=== PATIENT | male | born 1955 | race Caucasian/White ===

== ENCOUNTER → 2021-02-24 12:00 | Outpatient (CLI) | payer OTHER, SELFPAY ==
[2021-02-24] MEDS: COVID-19 VACC #1, MRNA(MOD) 100 MCG/0.5 ML VIAL IM (12:10)
== END ==
PROVIDERS: Visit Provider Internal Medicine
DX: Z23 Encounter for immunization (principal)
CPT/HCPCS: 0011A; 91301

== ENCOUNTER → 2021-03-24 14:07 | Outpatient (CLI) | payer OTHER, SELFPAY ==
[2021-03-24] MEDS: COVID-19 VACC #2, MRNA(MOD) 100 MCG/0.5 ML VIAL IM (14:14)
== END ==
PROVIDERS: Visit Provider Internal Medicine
DX: Z23 Encounter for immunization (principal)
CPT/HCPCS: 0012A; 91301

== ENCOUNTER → 2021-10-06 10:24 | Outpatient (CLI) | payer OTHER, SELFPAY ==
[2021-10-06 11:44] LABS: COVID19 -Nasal RAPID Negative
== END ==
PROVIDERS: Visit Provider Nurse Practitioner Family
DX: R05.9 Cough, unspecified (principal); R06.02 Shortness of breath; R09.89 Other specified symptoms and signs involving the circulatory and respiratory systems; R52 Pain, unspecified
CPT/HCPCS: 87635

== ENCOUNTER → 2021-10-06 10:41 | Outpatient (CLI) | payer OTHER, SELFPAY ==
--- NOTE | 2021-10-06 10:47 | DI.RAD.S_ITS ---
PROCEDURE: XR CHEST 2V INDICATIONS: cough TECHNIQUE: 2 views of the chest were acquired. COMPARISON: None. FINDINGS: Surgical changes and devices: None. Lungs and pleura: Mild diffuse interstitial prominence. No focal infiltrates. No pleural effusions or pneumothorax. Mediastinum: Mediastinal contours are normal. Heart size is normal. Bones and chest wall: No suspicious bony abnormalities. Soft tissues appear unremarkable. IMPRESSION: Mild diffuse interstitial prominence. Dictated by: Ed Santos M.D. on 10/06/2021 at 11:18 Approved by: Ed Santos M.D. on 10/06/2021 at 11:20
== END ==
PROVIDERS: PCP Family Medicine; Referring Provider Nurse Practitioner Family; Visit Provider Nurse Practitioner Family
DX: J40 Bronchitis, not specified as acute or chronic (principal); R05.9 Cough, unspecified; R06.02 Shortness of breath; R09.89 Other specified symptoms and signs involving the circulatory and respiratory systems; R52 Pain, unspecified; Z20.822 Contact with and (suspected) exposure to COVID-19
CPT/HCPCS: 71046; 87635

== ENCOUNTER 2021-10-08 09:17 | Inpatient (IN) | payer OTHER, SELFPAY ==
[2021-10-08] VITALS (88 sets, daily range): BP systolic 149–194; BP diastolic 73–100; PULSE 59–100; RESP 16–44; TEMP 36.8; O2SAT 84–98
--- NOTE | 2021-10-08 09:29 | DI.RAD.S_ITS ---
PROCEDURE: XR CHEST 1V INDICATIONS: dyspnea TECHNIQUE: One view of the chest was acquired. COMPARISON: [facility], CR, XR CHEST 2V, 10/06/2021, 10:48. FINDINGS: Surgical changes and devices: None. Lungs and pleura: Lungs are clear. No pleural effusions or pneumothorax. Mediastinum: Mediastinal contours appear normal. Heart size is normal. Bones and chest wall: No suspicious bony lesions. Overlying soft tissues appear unremarkable. IMPRESSION: No acute process. Dictated by: Lizette Montesinos M.D. on 10/08/2021 at 10:13 Approved by: Lizette Montesinos M.D. on 10/08/2021 at 10:13
[2021-10-08] MEDS: methylPREDNISolone 125 MG/2 ML VIAL IV (09:44)
[2021-10-08] MEDS: ALBUTEROL HFA MDI 60 PUFF/8 GM INHALER INH (09:51)
[2021-10-08 09:54] LABS: Hematocrit 50.5 % (41-53); Hemoglobin 17.1 g/dL (13.5-17.5); Mean Corpuscular HGB Conc 33.9 % (30-36); Mean Corpuscular Hemoglobin 29.8 PG (26-34); Mean Corpuscular Volume 88.1 fL (80-100); Platelet Count 224 X10^3/uL (150-400); Red Blood Cell Count 5.73 X10^6/uL (4.5-5.9); Red Cell Distribution Width 13.6 % (11.6-14.8); White Blood Cell Count 8.8 X10^3/uL (4.5-11.0)
[2021-10-08 09:56] LABS: Add Manual Diff / Slide Review YES
[2021-10-08 09:59] LABS: D Dimer 567 ng/mL (<230)
[2021-10-08 10:01] LABS: BUN Creatinine Ratio 21.8 (6-22); Blood Urea Nitrogen 17 mg/dL (9-20); Calcium 9.5 mg/dL (8.4-10.2); Carbon Dioxide 32 mmol/L (22-32); Chloride 98 mmol/L (98-107); Creatine Kinase 963 U/L (55-170); Estimated Glomerular Filt Rate > 60.0 mL/min (>60); Glucose 123 mg/dL (80-110); HEMOLYSIS < 15 (0-50); Lactate (Lactic Acid) 1.2 mmol/L (0.7-2.1); Magnesium 2.4 mg/dL (1.6-2.3); Potassium 3.3 mmol/L (3.4-5.1); Sodium 138 mmol/L (137-145)
[2021-10-08 10:13] LABS: NT-proBNP (BNP-Adult 18+) 581 pg/mL (<125); Troponin I 0.058 ng/mL (0.01-0.034)
[2021-10-08 10:15] LABS: CKMB % Relative Index 5.4 % (1.5-5.0)
--- NOTE | 2021-10-08 10:17 | DI.CT.S_ITS ---
PROCEDURE: CT ANGIO CHEST PE PROTOCOL INDICATIONS: Dyspnea. Rule out PE. TECHNIQUE: After the administration of intravenous contrast, 2 mm thick sections acquired from the pulmonary apices to the posterior costophrenic angles. 3-dimensional maximum intensity projection (MIP) coronal and sagittal reformats were then acquired through the thorax. For radiation dose reduction, the following was used: automated exposure control, adjustment of mA and/or kV according to patient size. COMPARISON: [facility], CR, XR CHEST 1V, 10/08/2021, 9:49. FINDINGS: Image quality: Excellent. Pulmonary arteries: Pulmonary arteries are normal in size, and demonstrate no intraluminal filling defects to suggest central pulmonary embolism. Lungs and pleura: There is a moderate to severe degree of multiple bilateral tree in bud pulmonary opacities, with mid/upper lung predominance. No pleural effusions or pneumothorax. Central and peripheral airways are patent. Mediastinum: Heart size is normal, without pericardial effusion . Thinning of the left ventricular apex with associated anterior protrusion of the left ventricular cavity spanning roughly 28 mm transverse. Moderate calcification of the coronary vasculature. Mildly enlarged right paratracheal/precarinal lymph node measuring 10 mm short axis. Mildly enlarged left hilar lymph node measuring 10 mm short axis. Mildly enlarged right hilar lymph nodes measuring 10 mm short axis and 12 mm short axis. Mildly enlarged 9 mm short axis subcarinal lymph node. Thoracic aorta is normal in caliber and enhancement. Esophagus is normal in caliber. Small hiatal hernia. Moderate thickening of the distal esophagus at the gastroesophageal junction. Bones and chest wall: No suspicious bony lesions. Ribs and thoracic spine appear intact throughout. Thyroid gland is grossly unremarkable. No axillary or supraclavicular adenopathy. Abdomen: Visualized upper abdominal solid organs appear normal in the early arterial phase of enhancement. IMPRESSION: 1. No pulmonary embolus. 2. Multiple bilateral pulmonary nodular densities as described above. Differential considerations include bronchopneumonia/aspiration, mycobacterial infection, bronchiolitis, connective tissue disorders, or granulomatous processes such as sarcoidosis. 3. Mediastinal and hilar adenopathy, likely reactive. Follow-up examination is recommended to exclude underlying malignancy. 4. Coronary artery disease. 5. Thickening of the distal esophagus. Initial further assessment with endoscopy is recommended to evaluate for neoplasm. 6. Apically thinning versus aneurysm involving the left ventricle. Initial further assessment with echocardiography is recommended. Dictated by: Lizette Montesinos M.D. on 10/08/2021 at 11:13 Approved by: Lizette Montesinos M.D. on 10/08/2021 at 11:20
[2021-10-08 10:27] LABS: PCO2 ABG 56.3 mmHg (35-45); pH ABG 7.36 (7.35-7.45)
[2021-10-08 10:28] LABS: HCO3 ABG 32 mmol/L (22-26); Oxygen Saturation ABG 98 % (95-100); PO2 ABG 115 mmHg (80-100); TCO2 ABG 34 mmol/L (21-31)
[2021-10-08 10:29] LABS: Fractionated Inspired Oxygen 32
[2021-10-08] MEDS: ASPIRIN 81 MG CHEW TAB 324 MG PO (10:34)
[2021-10-08 10:42] LABS: Neutrophils Absolute Manual 5104 /uL (3000-5900); Total Cells Counted 100
[2021-10-08 10:44] LABS: RBC Morphology Normal Morphology
[2021-10-08 10:51] LABS: Adenovirus Not Detected (Not Detect); B. parapertussis Not Detected (Not Detecte); Bordetella pertussis Not Detected (Not Detecte); Chlamydophila pneumoniae Not Detected (Not Detect); Coronavirus 229E Not Detected (Not Detect); Coronavirus HKU1 Not Detected (Not Detect); Coronavirus NL 63 Not Detected (Not Detect); Coronavirus OC43 Not Detected (Not Detect); Human Metapneumovirus Not Detected (Not Detect); Human Rhinovirus/Enterovirus Not Detected (Not Detect); Influenza A Not Detected (Not Detect); Influenza B Not Detected (Not Detect); Mycoplasma pneumoniae Not Detected (Not Detect); Parainfluenza Virus 1 Not Detected (Not Detect); Parainfluenza Virus 2 Not Detected (Not Detect); Parainfluenza Virus 3 Not Detected (Not Detect); Parainfluenza Virus 4 Not Detected (Not Detect); Respiratory Syncytial Virus Not Detected (Not Detect); SARS- CoV-2 Not Detected (Not Detecte)
[2021-10-08] MEDS: KETOROLAC 30 MG/ML VIAL 15 MG IV ×3 (11:38→21:50)
[2021-10-08] MEDS: ALBUTEROL/IPRATROPIUM 3 ML AMPUL INH ×3 (11:43→23:18)
--- NOTE | 2021-10-08 14:13 | ED.SOB ---
HPI - SOB/Dyspnea General Chief Complaint: Shortness of Breath/Dyspnea Stated Complaint: COUGH, TROUBLE BREATHING Time Seen by Provider: 10/08/21 09:26 Source: patient and family Mode of arrival: Wheelchair Limitations: no limitations History of Present Illness HPI Narrative: The patient presents with significant difficulty breathing. He is an active smoker, may pack years. He was seen in walk-in clinic 2 days ago COVID-19 testing is negative. Was started on an inhaler and cough suppressants. He is quite short of breath. He has no associated chest pain. Does not have a productive cough. He has no hemoptysis. He has no palpitations, no history of cardiac disease. He has no prior history of COPD. He does not have local PCM, BP has been managed for hypertension and hyperlipidemia. He has no orthopnea peripheral edema with current findings. The patient has significant dyspnea. He is talking in brief responses, gasping for air has he does so. Related Data Home Medications Medication Instructions Recorded Confirmed lisinopril 20 mg tablet 10 mg PO DAILY 10/06/21 10/08/21 rosuvastatin 40 mg tablet 40 mg PO DAILY 10/06/21 10/08/21 aspirin 81 mg tablet,delayed 81 mg PO DAILY 10/08/21 10/08/21 release (Adult Low Dose Aspirin) ezetimibe 10 mg tablet 10 mg PO DAILY 10/08/21 10/08/21 metoprolol tartrate 25 mg tablet 25 mg PO BID 10/08/21 10/08/21 Previous Rx's Medication Instructions Recorded albuterol sulfate 90 mcg/actuation 2 puff INHALATION Q6H PRN #6.7 g 10/06/21 aerosol inhaler benzonatate 100 mg capsule 100 mg PO BID PRN #20 cap 10/06/21 (Meron Wilcox) prednisone 50 mg tablet 50 mg PO DAILY 4 Days #4 tab 10/06/21 Allergies Allergy/AdvReac Type Severity Reaction Status Date / Time No Known Drug Allergies Allergy Unverified 10/06/21 10:12 Review of Systems Constitutional Constitutional: Denies body ache(s), Denies chills, Reports fatigue, Denies fever(s) and Denies headache(s) Eyes Eyes: Denies blurry vision and Denies change in vision ENT Ears, Nose, Mouth, and Throat: Denies vertigo, Denies dizziness, Denies headache(s), Denies mouth pain and Denies sinus pain Cardiovascular Cardiovascular: Denies chest pain, Denies syncope, Denies rapid heart rate and Denies dyspnea Respiratory Respiratory: Denies chest congestion, Denies cough and Denies dyspnea Gastrointestinal Gastrointestinal: Denies abdominal pain, Denies heartburn and Denies nausea Genitourinary Comments: No complaints. Musculoskeletal Musculoskeletal: Denies back pain Comments: No lower extremity edema or pain. Integumentary/Breasts Skin/Breast: Denies pruritus, Denies lesions and Denies rash Neurologic Neurologic: Denies confusion, Denies vertigo, Denies dizziness, Denies syncope and Denies headache(s) Psychiatric Psychiatric: Denies confusion and Denies depression Endocrine Endocrine: Reports fatigue Hematologic/Lymphatic On Anticoagulants: No Patient History Medical History (Updated 10/08/21 @ 20:05 by Nathan Norman MD) Hyperlipidemia Hypertension Social History Smoking Status: Former smoker Smoking Status: Former smoker alcohol intake frequency: 0-2 drinks per day Substance Use Type: does not use Exam Initial Vital Signs Initial Vital Signs: Vital Signs Temperature 98.3 F 10/08/21 09:20 Pulse Rate 79 10/08/21 09:20 Respiratory Rate 44 H 10/08/21 09:20 Blood Pressure 167/92 H 10/08/21 09:20 Pulse Oximetry 84 L 10/08/21 09:20 Const General: cooperative and in distress [facility] Head: normocephalic and atraumatic Mouth: oral mucosae normal Eyes General: appearance normal, both eyes and all related structures Pupils: PERRL EOM: EOM intact bilaterally Neck Neck: full ROM and No JVD Chest Chest: normal inspection of the chest Resp Auscultation: clear to auscultation bilaterally Cardio Palpation: normal PMI Rate: regular rate Rhythm: regular rhythm Heart Sounds: S1 normal, S2 normal and no murmurs GI Inspection: normal to inspection Palpation: soft, No guarding, No mass and No tender Back/Spine/Pelvis Back: No back tenderness and No CVA tenderness Skin General: no rashes or lesions noted Neuro General: patient alert, patient awake, patient oriented x3 and no focal motor deficits Extrem General: normal to inspection, no pedal edema and no calf tenderness Psych Mental Status: mental status grossly normal Course Course Course Narrative: The patient has received multiple neb treatments. Solu-Medrol was given. His initial peak flow was 200. He did not rapidly improved. He is requiring oxygen 4 L nasal cannula. He has an elevated D-dimer, and elevated BNP. He has no clinical findings suggesting severe CHF. His initial presentation was a respiratory illness. He has IV COPD, he is treated for community-acquired pneumonia with Rocephin and Zithromax. CTA chest showed no evidence of PE. He did show significant multiple pulmonary densities as well as hilar adenopathy. There is distal esophageal thickening. This will need additional follow-up. He has improved, yet requires ongoing treatment and oxygen. He is admitted for ongoing care to the hospitalist. Orders Ordered: ED Orders 10/08/21 13:40 Urine Culture Stat Urine Microscopic Stat Discontinued Medications Albuterol (Albuterol Hfa Mdi 60 Puff/8 Gm Inhaler) 4 puff INH NOW ONE Stop: 10/08/21 09:28 Last Admin: 10/08/21 09:51 Dose: 4 puff Documented by: TEMO Albuterol (Albuterol 2.5 Mg/3 Ml Neb (Adult)) 5 mg INH NOW ONE Stop: 10/08/21 14:40 Last Admin: 10/08/21 14:47 Dose: 5 mg Documented by: PATSY Albuterol/Ipratropium (Albuterol/Ipratropium 3 Ml Ampul) 3 ml INH NOW ONE Stop: 10/08/21 11:39 Last Admin: 10/08/21 11:43 Dose: 3 ml Documented by: DARI Albuterol/Ipratropium (Albuterol/Ipratropium 3 Ml Ampul) 3 ml INH NOW ONE Stop: 10/08/21 11:40 Last Admin: 10/08/21 11:58 Dose: 3 ml Documented by: DARI Aspirin (Aspirin 81 Mg Chew Tab) 324 mg PO NOW ONE Stop: 10/08/21 10:18 Last Admin: 10/08/21 10:34 Dose: 324 mg Documented by: TEMO Ceftriaxone Sodium 1,000 mg/ (Sodium Chloride) 100 mls @ 200 mls/hr IV NOW ONE Stop: 10/08/21 14:25 Last Infusion: 10/08/21 15:53 Dose: 0 mls/hr Documented by: Admin: 10/08/21 14:46 Dose: 200 mls/hr Documented by: JASPREET Azithromycin 500 mg/ Dextrose 250 mls @ 250 mls/hr IV NOW ONE Stop: 10/08/21 14:25 Last Infusion: 10/08/21 17:40 Dose: 0 mls/hr Documented by: Admin: 10/08/21 15:39 Dose: 250 mls/hr Documented by: JASPREET Ipratropium [place] (Ipratropium 0.5 Mg/2.5 Ml Neb) 0.5 mg INH NOW ONE Stop: 10/08/21 14:40 Last Admin: 10/08/21 14:47 Dose: 0.5 mg Documented by: PATSY Ketorolac Tromethamine (Ketorolac 30 Mg/Ml Vial) 15 mg IV NOW ONE Stop: 10/08/21 11:35 Last Admin: 10/08/21 11:38 Dose: 15 mg Documented by: TEMO Ketorolac Tromethamine (Ketorolac 30 Mg/Ml Vial) 15 mg IV NOW ONE Stop: 10/08/21 18:51 Last Admin: 10/08/21 18:54 Dose: 15 mg Documented by: JASPREET Methylprednisolone (Methylprednisolone 125 Mg/2 Ml Vial) 125 mg IV NOW ONE Stop: 10/08/21 09:29 Last Admin: 10/08/21 09:44 Dose: 125 mg Documented by: TEMO Vital Signs Vital signs: Vital Signs - 8 hr 10/08/21 11:43 10/08/21 11:50 10/08/21 11:58 Pulse Rate 72 68 68 Respiratory Rate 18 31 H 16 Blood Pressure 174/88 H Pulse Oximetry 91 94 95 10/08/21 12:00 10/08/21 12:10 10/08/21 12:20 Pulse Rate 68 75 71 Respiratory Rate 27 H 39 H 27 H Blood Pressure 172/89 H 173/89 H 176/91 H Pulse Oximetry 94 94 91 10/08/21 12:30 10/08/21 12:40 10/08/21 12:50 Pulse Rate 72 74 69 Respiratory Rate 27 H 33 H 26 H Blood Pressure 177/90 H 160/76 H 160/79 H Pulse Oximetry 91 91 92 10/08/21 13:00 10/08/21 13:10 10/08/21 13:20 Pulse Rate 70 71 81 Respiratory Rate 24 26 H 31 H Blood Pressure 172/77 H 157/73 H 158/81 H Pulse Oximetry 92 93 93 10/08/21 13:30 10/08/21 13:40 10/08/21 13:50 Pulse Rate 77 80 70 Respiratory Rate 26 H Blood Pressure 156/85 H 158/95 H 157/80 H Pulse Oximetry 91 92 90 L 10/08/21 14:00 10/08/21 14:10 10/08/21 14:20 Pulse Rate 65 69 76 Respiratory Rate 24 33 H Blood Pressure 149/86 H 170/80 H 165/87 H Pulse Oximetry 91 92 92 MDM - SOB/Dyspnea Lab Data Result diagrams: 10/08/21 09:35 10/08/21 09:35 Labs: Lab Results 10/08/21 10/08/21 10/08/21 Range/Units 09:35 09:35 09:35 WBC 8.8 (4.5-11.0) X10^3/uL RBC 5.73 (4.5-5.9) X10^6/uL Hgb 17.1 (13.5-17.5) g/dL Hct 50.5 (41-53) % MCV 88.1 (80-100) fL MCH 29.8 (26-34) PG MCHC 33.9 (30-36) % RDW 13.6 (11.6-14.8) % Plt Count 224 (150-400) X10^3/uL Neut % (Auto) Not Reportable Lymph % (Auto) Not Reportable Mcpherson % (Auto) Not Reportable Eos % (Auto) Not Reportable Baso % (Auto) Not Reportable Lymph # (Auto) Not Reportable Mcpherson # (Auto) Not Reportable Baso # (Auto) Not Reportable Total Counted 100 Seg Neutrophils % 33.0 L (38-70) % Band Neutrophils % 25.0 H (3-7) % Lymphocytes % (Manual) 14.0 L (25-45) % Atypical Lymphs % 2.0 H ( - 0) % Monocytes % (Manual) 24.0 H (2-11) % Metamyelocytes % 2.0 H (-0) % Neutrophils # (Manual) 5104 (1113-3249) /uL Plt Morphology Comment RBC Morphology Normal morphology D-Dimer 567 H (<230) ng/mL ABG pH (7.35-7.45) ABG pCO2 (35-45) mmHg ABG pO2 (80-100) mmHg ABG HCO3 (22-26) mmol/L ABG Total CO2 (21-31) mmol/L ABG O2 Saturation (95-100) % ABG Base Excess (-2-2) mmol/L FiO2 Sodium 138 (137-145) mmol/L Potassium 3.3 L (3.4-5.1) mmol/L Chloride 98 (98-107) mmol/L Carbon Dioxide 32 (22-32) mmol/L BUN 17 (9-20) mg/dL Creatinine 0.78 (0.66-1.25) mg/dL Estimated GFR > 60.0 (>60) mL/min BUN/Creatinine Ratio 21.8 (6-22) Glucose 123 H (80-110) mg/dL Lactate (0.7-2.1) mmol/L Calcium 9.5 (8.4-10.2) mg/dL Magnesium 2.4 H (1.6-2.3) mg/dL Total Creatine Kinase 963 H (55-170) U/L CK-MB (CK-2) 52.00 H (<2.37) ng/mL CK-MB (CK-2) Rel Index 5.4 H (1.5-5.0) % Troponin I 0.058 H (0.01-0.034) ng/mL NT-Pro-B Natriuret Pep 581 H (<125) pg/mL Urine RBC (0-5/HPF) Urine WBC (0-5/HPF) Urine Bacteria (None) Ur Culture Indicated? Chlamy pneumoniae PCR (Not Detect) Adenovirus (PCR) (Not Detect) B. pertussis DNA (PCR) (Not Detecte) B.parapertussis DNA PCR (Not Detecte) Coronavirus OC43 (PCR) (Not Detect) Coronavirus HKU1 (PCR) (Not Detect) Coronavirus 229E (PCR) (Not Detect) SARS-CoV-2 (PCR) (Not Detecte) Coronavirus NL63 (PCR) (Not Detect) Human Metapneumovir PCR (Not Detect) Influenza Type A (PCR) (Not Detect) Influenza Type B (PCR) (Not Detect) M. pneumoniae (PCR) (Not Detect) Parainfluenza 1 (PCR) (Not Detect) Parainfluenza 2 (PCR) (Not Detect) Parainfluenza 3 (PCR) (Not Detect) Parainfluenza 4 (PCR) (Not Detect) RSV (PCR) (Not Detect) Entero/Rhino (PCR) (Not Detect) 10/08/21 10/08/21 10/08/21 Range/Units 09:35 09:35 10:18 WBC (4.5-11.0) X10^3/uL RBC (4.5-5.9) X10^6/uL Hgb (13.5-17.5) g/dL Hct (41-53) % MCV (80-100) fL MCH (26-34) PG MCHC (30-36) % RDW (11.6-14.8) % Plt Count (150-400) X10^3/uL Neut % (Auto) Lymph % (Auto) Mcpherson % (Auto) Eos % (Auto) Baso % (Auto) Lymph # (Auto) Mcpherson # (Auto) Baso # (Auto) Total Counted Seg Neutrophils % (38-70) % Band Neutrophils % (3-7) % Lymphocytes % (Manual) (25-45) % Atypical Lymphs % ( - 0) % Monocytes % (Manual) (2-11) % Metamyelocytes % (-0) % Neutrophils # (Manual) (7014-8534) /uL Plt Morphology Comment RBC Morphology D-Dimer (<230) ng/mL ABG pH 7.36 (7.35-7.45) ABG pCO2 56.3 H (35-45) mmHg ABG pO2 115 H (80-100) mmHg ABG HCO3 32 H (22-26) mmol/L ABG Total CO2 34 H (21-31) mmol/L ABG O2 Saturation 98 (95-100) % ABG Base Excess 6.0 H (-2-2) mmol/L FiO2 32 Sodium (137-145) mmol/L Potassium (3.4-5.1) mmol/L Chloride (98-107) mmol/L Carbon Dioxide (22-32) mmol/L BUN (9-20) mg/dL Creatinine (0.66-1.25) mg/dL Estimated GFR (>60) mL/min BUN/Creatinine Ratio (6-22) Glucose (80-110) mg/dL Lactate 1.2 (0.7-2.1) mmol/L Calcium (8.4-10.2) mg/dL Magnesium (1.6-2.3) mg/dL Total Creatine Kinase (55-170) U/L CK-MB (CK-2) (<2.37) ng/mL CK-MB (CK-2) Rel Index (1.5-5.0) % Troponin I (0.01-0.034) ng/mL NT-Pro-B Natriuret Pep (<125) pg/mL Urine RBC (0-5/HPF) Urine WBC (0-5/HPF) Urine Bacteria (None) Ur Culture Indicated? Chlamy pneumoniae PCR Not detected (Not Detect) Adenovirus (PCR) Not detected (Not Detect) B. pertussis DNA (PCR) Not detected (Not Detecte) B.parapertussis DNA PCR Not detected (Not Detecte) Coronavirus OC43 (PCR) Not detected (Not Detect) Coronavirus HKU1 (PCR) Not detected (Not Detect) Coronavirus 229E (PCR) Not detected (Not Detect) SARS-CoV-2 (PCR) Not detected (Not Detecte) Coronavirus NL63 (PCR) Not detected (Not Detect) Human Metapneumovir PCR Not detected (Not Detect) Influenza Type A (PCR) Not detected (Not Detect) Influenza Type B (PCR) Not detected (Not Detect) M. pneumoniae (PCR) Not detected (Not Detect) Parainfluenza 1 (PCR) Not detected (Not Detect) Parainfluenza 2 (PCR) Not detected (Not Detect) Parainfluenza 3 (PCR) Not detected (Not Detect) Parainfluenza 4 (PCR) Not detected (Not Detect) RSV (PCR) Not detected (Not Detect) Entero/Rhino (PCR) Not detected (Not Detect) 10/08/21 Range/Units 13:40 WBC (4.5-11.0) X10^3/uL RBC (4.5-5.9) X10^6/uL Hgb (13.5-17.5) g/dL Hct (41-53) % MCV (80-100) fL MCH (26-34) PG MCHC (30-36) % RDW (11.6-14.8) % Plt Count (150-400) X10^3/uL Neut % (Auto) Lymph % (Auto) Mcpherson % (Auto) Eos % (Auto) Baso % (Auto) Lymph # (Auto) [place]pherson # (Auto) Baso # (Auto) Total Counted Seg Neutrophils % (38-70) % Band Neutrophils % (3-7) % Lymphocytes % (Manual) (25-45) % Atypical Lymphs % ( - 0) % Monocytes % (Manual) (2-11) % Metamyelocytes % (-0) % Neutrophils # (Manual) ([id number]) /uL Plt Morphology Comment RBC Morphology D-Dimer (<230) ng/mL ABG pH (7.35-7.45) ABG pCO2 (35-45) mmHg ABG pO2 (80-100) mmHg ABG HCO3 (22-26) mmol/L ABG Total CO2 (21-31) mmol/L ABG O2 Saturation (95-100) % ABG Base Excess (-2-2) mmol/L FiO2 Sodium (137-145) mmol/L Potassium (3.4-5.1) mmol/L Chloride (98-107) mmol/L Carbon Dioxide (22-32) mmol/L BUN (9-20) mg/dL Creatinine (0.66-1.25) mg/dL Estimated GFR (>60) mL/min BUN/Creatinine Ratio (6-22) Glucose (80-110) mg/dL Lactate (0.7-2.1) mmol/L Calcium (8.4-10.2) mg/dL Magnesium (1.6-2.3) mg/dL Total Creatine Kinase (55-170) U/L CK-MB (CK-2) (<2.37) ng/mL CK-MB (CK-2) Rel Index (1.5-5.0) % Troponin I (0.01-0.034) ng/mL NT-Pro-B Natriuret Pep (<125) pg/mL Urine RBC 0-1/hpf (0-5/HPF) Urine WBC 0-1/hpf (0-5/HPF) Urine Bacteria None seen (None) Ur Culture Indicated? Culture not indicate Chlamy pneumoniae PCR (Not Detect) Adenovirus (PCR) (Not Detect) B. pertussis DNA (PCR) (Not Detecte) B.parapertussis DNA PCR (Not Detecte) Coronavirus OC43 (PCR) (Not Detect) Coronavirus HKU1 (PCR) (Not Detect) Coronavirus 229E (PCR) (Not Detect) SARS-CoV-2 (PCR) (Not Detecte) Coronavirus NL63 (PCR) (Not Detect) Human Metapneumovir PCR (Not Detect) Influenza Type A (PCR) (Not Detect) Influenza Type B (PCR) (Not Detect) M. pneumoniae (PCR) (Not Detect) Parainfluenza 1 (PCR) (Not Detect) Parainfluenza 2 (PCR) (Not Detect) Parainfluenza 3 (PCR) (Not Detect) Parainfluenza 4 (PCR) (Not Detect) RSV (PCR) (Not Detect) Entero/Rhino (PCR) (Not Detect) Urine Dip Bedside Urine Glucose Negative Bedside Urine Bilirubin - Negative Bedside Urine Ketone +/- 5 Urine Specific [place] 1.015 Bedside Urine Occult Blood + Bedside Urine pH 6.0 Bedside Urine Protein + 30 Bedside Urine Urobilinogen - Negative Bedside Urine Nitrite - Negative Bedside Urine Leukocytes - Negative Esterase Imaging Data Chest x-ray: Radiologist's Impression: No acute findings CTA chest: Radiologist's Impression: [place] [address] CT Scan Report Signed Patient: Binh White MR#: [id number] : 1955 Acct:[id number] Age/Sex: 66 / M Date of Service: 10/08/21 Loc: ED Accession Number: [id number] ?? Procedure: CT angio chest PE protocol Ordering Provider: Nathan Norman MD PROCEDURE:? CT ANGIO CHEST PE PROTOCOL ? INDICATIONS:? Dyspnea.? Rule out PE. ? TECHNIQUE:? After the administration of intravenous contrast, 2 mm thick sections acquired from the pulmonary apices to the posterior costophrenic angles.? 3-dimensional maximum intensity projection (MIP) coronal and sagittal reformats were then acquired through the thorax.? For radiation dose reduction, the following was used:? automated exposure control, adjustment of mA and/or kV according to patient size.? ? COMPARISON:? [facility], JATINDER, XR CHEST 1V, 10/08/2021, 9:49. ? FINDINGS:? Image quality:? Excellent.? ? Pulmonary arteries:? Pulmonary arteries are normal in size, and demonstrate no intraluminal filling defects to suggest central pulmonary embolism.? ? Lungs and pleura:? There is a moderate to severe degree of multiple bilateral tree in bud pulmonary opacities, with mid/upper lung predominance.? No pleural effusions or pneumothorax.? Central and peripheral airways are patent.? ? Mediastinum:? Heart size is normal, without pericardial effusion .? Thinning of the left ventricular apex with associated anterior protrusion of the left ventricular cavity spanning roughly 28 mm transverse.? Moderate calcification of the coronary vasculature.? Mildly enlarged right paratracheal/precarinal lymph node measuring 10 mm short axis.? Mildly enlarged left hilar lymph node measuring 10 mm short axis.? Mildly enlarged right hilar lymph nodes measuring 10 mm short axis and 12 mm short axis.? Mildly enlarged 9 mm short axis subcarinal lymph node.? Thoracic aorta is normal in caliber and enhancement.? Esophagus is normal in caliber.? Small hiatal hernia.? Moderate thickening of the distal esophagus at the gastroesophageal junction. ? Bones and chest wall:? No suspicious bony lesions.? Ribs and thoracic spine appear intact throughout.? Thyroid gland is grossly unremarkable.? No axillary or supraclavicular adenopathy.? ? Abdomen:? Visualized upper abdominal solid organs appear normal in the early arterial phase of enhancement.? ? IMPRESSION:? 1. No pulmonary embolus. 2. Multiple bilateral pulmonary nodular densities as described above.? Differential considerations include bronchopneumonia/aspiration, mycobacterial infection, bronchiolitis, connective tissue disorders, or granulomatous processes such as sarcoidosis. 3. Mediastinal and hilar adenopathy, likely reactive.? Follow-up examination is recommended to exclude underlying malignancy. 4. Coronary artery disease. 5. Thickening of the distal esophagus.? Initial further assessment with endoscopy is recommended to evaluate for neoplasm. 6. Apically thinning versus aneurysm involving the left ventricle.? Initial further assessment with echocardiography is recommended.? ? Dictated by: Lizette Montesinos M.D. on 10/08/2021 at 11:13 ? ? Approved by: Lizette Montesinos M.D. on 10/08/2021 at 11:20?? ECG Data Attestation: I personally reviewed and interpreted this ECG as follows: (Normal sinus rhythm rate 82 beats per minute. Inferior Q-waves. No acute ST T wave changes. Occasional PVC.) Critical Care Time Critical Care Time Critical Care Time: Yes Total Critical Care Time: 50 Attestation: Critical care time included initial assessment patient. Time included review of x-ray, radiology and lab data. Several clinical decisions required. The situation was discussed with the patient, and the admitting physician. Discharge Plan Departure Patient Disposition: Admitted As Inpatient Clinical Impression: COPD (chronic obstructive pulmonary disease), Hypertension, Multiple pulmonary nodules, Continuous tobacco abuse, Community acquired pneumonia Admit Date/Time: 10/08/21 14:25 Admit Provider: Michelle Christiansen
[2021-10-08 14:22] LABS: Bacteria Urine None Seen; RBC Urine 0-1/HPF (0-5/HPF); WBC Urine 0-1/HPF (0-5/HPF)
[2021-10-08] MEDS: cefTRIAXone 1,000 MG in SODIUM CHLORIDE 0.9% 100 ML 200 ML IV (14:46)
[2021-10-08] MEDS: ALBUTEROL 2.5 MG/3 ML NEB (ADULT) 5 MG INH (14:47)
[2021-10-08] MEDS: IPRATROPIUM 0.5 MG/2.5 ML NEB INH (14:47)
[2021-10-08] MEDS: AZITHROMYCIN 500 MG in DEXTROSE 5% IN WATER 250 ML IV (15:39)
[2021-10-08 20:22] LABS: NT-proBNP (BNP-Adult 18+) 573 pg/mL (<125)
--- NOTE | 2021-10-08 21:45 | P.HP_ITS ---
History of Present Illness History of Present Illness Date Patient Seen: 10/08/21 Chief complaint: COUGH, TROUBLE BREATHING Narrative: The patient is 66 y/o male with a history of CAD, s/p 7 cardiac stents (4 INGRID), hypertension, hyperlipidemia, esophagaeal cancer, and prostate cancer, who was well until 9 days prior to admission. The patient reports his returned from [place] with a viral infection. She was evaluated/tested and found to be Covid negative. They are both vaccinated against Covid-19. He developed productive cough, shortness of breath, and wheezing. He was seen by his PCP two days ago and given albuterol, prednisone, and benzoate for cough. Despite that he continues to be very symptomatic. Patient has bilateral conjunctival drainage , productive cough, wheezing, shortness of breath, poor appetite, headache and sinus fullness. He was very short of breath in the ED, hypoxic with a room air saturation of 85% and speaking in 3 word sentences. He smoked a pack of cigarettes daily from 1970 to 2008. He has not smoked cigarettes since 2008. He was smoking marijuana daily until recently. He has a remote history of asthma as a child. He also has a remote history of several severe respiratory infections associated with sinus disease many years ago. He has not had pulmonary function testing. He has had no anginal chest pain. He did have some chest pain reprodu cible with palpation which is unlike his prior cardiac chest pain. The patient was evaluated in the ED from to be hypoxic and placed on 3 liters of oxygen. He was given albuterol inhaler and steroids. His Peak flow in the ED was 200. He had a chest xray in the ED which was unremarkable. CT Angio was negative for PE, but revealed multiple bilateral pulmonary nodular densities, mediastinal and hilar adenopathy, thickening of the esophagus, and Coronary artery disease. The patient was started on antibiotics in the ED for presumed community acquired pneumonia and admitted to the hospital for further evaluation. Patient History Medical History (Updated 10/08/21 @ 21:56 by Hiwot Mckeon MD) Esophageal cancer Hyperlipidemia Hypertension Myocardial infarction Prostate cancer Surgical History (Updated 10/08/21 @ 21:56 by Hiwot Mckeon MD) S/P robot-assisted surgical procedure Family & Social History Family History (Updated 10/08/21 @ 21:56 by Hiwot Mckeon MD) Brother Cancer Social History: no tobacco, no alcohol uses marijuana daily Safety & Behavioral: Feels Safe in Current Yes Environment Been Physically Hurt or No Threatened By a Person Tobacco & Substance use: Smoking Status Former smoker alcohol intake frequency 0-2 drinks per day Substance Use Type does not use Meds Home Medications and Allergies Home Medications Medication Instructions Recorded Confirmed Type albuterol sulfate 90 mcg/actuation 2 puff INHALATION Q6H PRN #6.7 g 10/06/21 10/08/21 Rx aerosol inhaler benzonatate 100 mg capsule 100 mg PO BID PRN #20 cap 10/06/21 10/08/21 Rx (Tessalon Perlgalina) lisinopril 20 mg tablet 10 mg PO DAILY 10/06/21 10/08/21 History prednisone 50 mg tablet 50 mg PO DAILY 4 Days #4 tab 10/06/21 10/08/21 Rx rosuvastatin 40 mg tablet 40 mg PO DAILY 10/06/21 10/08/21 History aspirin 81 mg tablet,delayed 81 mg PO DAILY 10/08/21 10/08/21 History release (Adult Low Dose Aspirin) ezetimibe 10 mg tablet 10 mg PO DAILY 10/08/21 10/08/21 History metoprolol tartrate 25 mg tablet 25 mg PO BID 10/08/21 10/08/21 History Allergies Allergy/AdvReac Type Severity Reaction Status Date / Time No Known Drug Allergies Allergy Unverified 10/06/21 10:12 Review of Systems Review of Systems Narrative: 10 point review of system is negative except as above Exam Vital Signs (past 8 hours): - 10/08/21 13:50 10/08/21 14:00 10/08/21 14:10 Pulse Rate 70 65 69 Respiratory Rate 24 Blood Pressure 157/80 H 149/86 H 170/80 H Pulse Oximetry 90 L 91 92 10/08/21 14:20 10/08/21 14:30 10/08/21 14:40 Pulse Rate 76 83 75 Respiratory Rate 33 H 38 H 31 H Blood Pressure 165/87 H Pulse Oximetry 92 90 L 91 10/08/21 14:47 10/08/21 14:50 10/08/21 15:00 Pulse Rate 78 75 79 Respiratory Rate 23 22 39 H Blood Pressure Pulse Oximetry 93 91 90 L 10/08/21 15:10 10/08/21 15:20 10/08/21 15:30 Pulse Rate 100 H 87 90 Respiratory Rate 35 H 20 35 H Blood Pressure Pulse Oximetry 89 L 91 91 10/08/21 15:40 10/08/21 15:50 10/08/21 16:00 Pulse Rate 91 H 91 H 84 Respiratory Rate 32 H 26 H 29 H Blood Pressure Pulse Oximetry 91 90 L 92 10/08/21 16:10 10/08/21 16:20 10/08/21 16:30 Pulse Rate 89 82 81 Respiratory Rate 34 H 31 H 33 H Blood Pressure Pulse Oximetry 90 L 91 91 10/08/21 16:40 10/08/21 16:50 10/08/21 16:58 Pulse Rate 88 85 83 Respiratory Rate 32 H 33 H 23 Blood Pressure 190/93 H Pulse Oximetry 90 L 92 10/08/21 17:00 10/08/21 17:10 10/08/21 17:20 Pulse Rate 81 75 89 Respiratory Rate 22 24 Blood Pressure Pulse Oximetry 92 91 91 10/08/21 17:30 10/08/21 17:40 10/08/21 17:50 Pulse Rate 87 84 90 Respiratory Rate 24 Blood Pressure Pulse Oximetry 93 94 92 10/08/21 18:00 10/08/21 18:10 10/08/21 18:20 Pulse Rate 91 H 81 89 Respiratory Rate 31 H 24 23 Blood Pressure Pulse Oximetry 92 93 92 10/08/21 18:30 10/08/21 18:50 10/08/21 18:57 Pulse Rate 87 86 Respiratory Rate 29 H 40 H Blood Pressure Pulse Oximetry 92 93 91 10/08/21 19:00 10/08/21 19:10 10/08/21 19:40 Pulse Rate 80 75 76 Respiratory Rate 32 H 28 H 24 Blood Pressure Pulse Oximetry 92 91 90 L 10/08/21 19:50 10/08/21 20:10 Pulse Rate 84 89 Respiratory Rate Blood Pressure Pulse Oximetry 93 93 Oxygen Delivery Method Nasal Cannula Oxygen Flow Rate 3 Narrative Exam Narrative: ill appearing male, short of breath, raspy voice, speaking in short sentences Const Other: well nourished, well developed, but ill appearing Eyes Other: bilateral conjunctival ejection, exudate draining from both eyes, sclera anicteric eyelids matted with drainage material Neck Other: supple, without adenopathy thyromegaly, or JVD Resp Other: decreased breath sounds with scattered rhonchi Cardio Other: RRR nl Sl S2 GI Other: Abd: soft/ non tender/ non distended, no HSM Skin Other: no lesions Neuro Other: Cranial nerves 2-12 intact, strength symmetric and equal, sensation grossly intact, gait is not assessed Extrem Other: no edema Psych Other: Normal thought content, thought processes, normal judgement, speech and mood appear normal, no hallucinations Objective Labs Result Diagrams: 10/08/21 09:35 10/08/21 09:35 Labs: Laboratory Results - last 24 hr 10/08/21 10/08/21 10/08/21 09:35 09:35 09:35 WBC 8.8 RBC 5.73 Hgb 17.1 Hct 50.5 MCV 88.1 MCH 29.8 MCHC 33.9 RDW 13.6 Plt Count 224 Neut % (Auto) Not Reportable Lymph % (Auto) Not Reportable [place] % (Auto) Not Reportable Eos % (Auto) Not Reportable Baso % (Auto) Not Reportable Lymph # (Auto) Not Reportable [place] # (Auto) Not Reportable Baso # (Auto) Not Reportable Total Counted 100 Seg Neutrophils % 33.0 L Band Neutrophils % 25.0 H Lymphocytes % (Manual) 14.0 L Atypical Lymphs % 2.0 H Monocytes % (Manual) 24.0 H Metamyelocytes % 2.0 H Neutrophils # (Manual) 5104 Plt Morphology Comment RBC Morphology Normal morphology D-Dimer 567 H ABG pH ABG pCO2 ABG pO2 ABG HCO3 ABG Total CO2 ABG O2 Saturation ABG Base Excess FiO2 Sodium 138 Potassium 3.3 L Chloride 98 Carbon Dioxide 32 BUN 17 Creatinine 0.78 Estimated GFR > 60.0 BUN/Creatinine Ratio 21.8 Glucose 123 H Lactate Calcium 9.5 Magnesium 2.4 H Total Creatine Kinase 963 H CK-MB (CK-2) 52.00 H CK-MB (CK-2) Rel Index 5.4 H Troponin I 0.058 H NT-Pro-B Natriuret Pep 581 H Urine RBC Urine WBC Urine Bacteria Ur Culture Indicated? Chlamy pneumoniae PCR Adenovirus (PCR) B. pertussis DNA (PCR) B.parapertussis DNA PCR Coronavirus OC43 (PCR) Coronavirus HKU1 (PCR) Coronavirus 229E (PCR) SARS-CoV-2 (PCR) Coronavirus NL63 (PCR) Human Metapneumovir PCR Influenza Type A (PCR) Influenza Type B (PCR) M. pneumoniae (PCR) Parainfluenza 1 (PCR) Parainfluenza 2 (PCR) Parainfluenza 3 (PCR) Parainfluenza 4 (PCR) RSV (PCR) Entero/Rhino (PCR) 10/08/21 10/08/21 10/08/21 09:35 09:35 09:35 WBC RBC Hgb Hct MCV MCH MCHC RDW Plt Count Neut % (Auto) Lymph % (Auto) [place] % (Auto) Eos % (Auto) Baso % (Auto) Lymph # (Auto) [place] # (Auto) Baso # (Auto) Total Counted Seg Neutrophils % Band Neutrophils % Lymphocytes % (Manual) Atypical Lymphs % Monocytes % (Manual) Metamyelocytes % Neutrophils # (Manual) Plt Morphology Comment RBC Morphology D-Dimer ABG pH ABG pCO2 ABG pO2 ABG HCO3 ABG Total CO2 ABG O2 Saturation ABG Base Excess FiO2 Sodium Potassium Chloride Carbon Dioxide BUN Creatinine Estimated GFR BUN/Creatinine Ratio Glucose Lactate 1.2 Calcium Magnesium Total Creatine Kinase CK-MB (CK-2) CK-MB (CK-2) Rel Index Troponin I NT-Pro-B Natriuret Pep 573 H Urine RBC Urine WBC Urine Bacteria Ur Culture Indicated? Chlamy pneumoniae PCR Not detected Adenovirus (PCR) Not detected B. pertussis DNA (PCR) Not detected B.parapertussis DNA PCR Not detected Coronavirus OC43 (PCR) Not detected Coronavirus HKU1 (PCR) Not detected Coronavirus 229E (PCR) Not detected SARS-CoV-2 (PCR) Not detected Coronavirus NL63 (PCR) Not detected Human Metapneumovir PCR Not detected Influenza Type A (PCR) Not detected Influenza Type B (PCR) Not detected M. pneumoniae (PCR) Not detected Parainfluenza 1 (PCR) Not detected Parainfluenza 2 (PCR) Not detected Parainfluenza 3 (PCR) Not detected Parainfluenza 4 (PCR) Not detected RSV (PCR) Not detected Entero/Rhino (PCR) Not detected 10/08/21 10/08/21 10:18 13:40 WBC RBC Hgb Hct MCV MCH MCHC RDW Plt Count Neut % (Auto) Lymph % (Auto) [place] % (Auto) Eos % (Auto) Baso % (Auto) Lymph # (Auto) [place] # (Auto) Baso # (Auto) Total Counted Seg Neutrophils % Band Neutrophils % Lymphocytes % (Manual) Atypical Lymphs % Monocytes % (Manual) Metamyelocytes % Neutrophils # (Manual) Plt Morphology Comment RBC Morphology D-Dimer ABG pH 7.36 ABG pCO2 56.3 H ABG pO2 115 H ABG HCO3 32 H ABG Total CO2 34 H ABG O2 Saturation 98 ABG Base Excess 6.0 H FiO2 32 Sodium Potassium Chloride Carbon Dioxide BUN Creatinine Estimated GFR BUN/Creatinine Ratio Glucose Lactate Calcium Magnesium Total Creatine Kinase CK-MB (CK-2) CK-MB (CK-2) Rel Index Troponin I NT-Pro-B Natriuret Pep Urine RBC 0-1/hpf Urine WBC 0-1/hpf Urine Bacteria None seen Ur Culture Indicated? Culture not indicate Chlamy pneumoniae PCR Adenovirus (PCR) B. pertussis DNA (PCR) B.parapertussis DNA PCR Coronavirus OC43 (PCR) Coronavirus HKU1 (PCR) Coronavirus 229E (PCR) SARS-CoV-2 (PCR) Coronavirus NL63 (PCR) Human Metapneumovir PCR Influenza Type A (PCR) Influenza Type B (PCR) M. pneumoniae (PCR) Parainfluenza 1 (PCR) Parainfluenza 2 (PCR) Parainfluenza 3 (PCR) Parainfluenza 4 (PCR) RSV (PCR) Entero/Rhino (PCR) Assessment & Plan Assessment & Plan narrative: 66 y/o male with a history of CAD, remote [place], CAD stents, hypertension, hyperlipidemia, history of esophageal cancer, history of prostate cancer, and probable COPD admitted for * Acute Respiratory Failure * This is likely multifactorial, patient with probable initial viral infection from * CT Scan suggests pneumonia, despite normal WBC and no fever * Also likely has Acute Sinusitis contributing as well * Will check CT of Sinuses * Suspect underlying COPD as well * Continue Ceftriaxone/Azithyromycin for Community Acquired Pneumonia/Acute sinusitis * Continue IV solumedtrol for probable underlying COPD, continue albuterol/atrovent nebs, oxygen as needed for hypoxia * Would recommend outpatient pulmonary function studies once baseline improved * Sars Covid-19 negative, patient is vaccinated and has had his flu shot * Respiratory panel negative Hypertension * Continue lisinopril and metoprolol Hypokalemia * replace potassium CAD * History of SD/ S/p 7 Cardiac Stents * initial troponin 0.058 * Will trend troponin's, check EKG, suspect * Myocardial Injury no active ischemia * continue statin and aspirin * dvt prophylaxis Hyperlipidemia * Continue Statin and ezetimibe History of Esophageal and Prostate Cancer * CT of Chest revealed esophageal thickening * Needs outpatient follow up for possible repeat EGD Patient is a full code and will note that in his record. He will be admitted as an inpatient. I have utilized all available resources to evaluate, confirm, and verify home medications. * COVID-19 COVID-19 status: Negative Result date/Date tested (Pos, Neg/Pending): 10/08/21 Time Spent With Patient Critical Care time: I spent a total of [] minutes of critical care time on this patient's care today; this time is exclusive of procedural time.
--- NOTE | 2021-10-08 22:10 | DI.CT.S_ITS ---
PROCEDURE: CT SINUS SCREEN WO CON INDICATIONS: r/o sinusitis TECHNIQUE: Noncontrast 3.0 mm axial images acquired from the frontal sinuses to the mid-sella, with coronal and sagittal reformats. For radiation dose reduction, the following was used: automated exposure control, adjustment of mA and/or kV according to patient size. COMPARISON: None. FINDINGS: Image quality: Excellent. Maxillary Sinuses: No bony remodeling or destruction. Sinuses are clear. Ethmoid Air Cells: Mild patchy left ethmoid opacification. Bilateral ethmoid mucosal thickening. Sphenoid Sinuses: No bony remodeling or destruction. Sinuses are clear. Frontal Sinuses: No bony remodeling or destruction. Sinuses are clear. Ostiomeatal Complexes: Right ostiomeatal complex is patent. Left ostiomeatal complex suboptimally visualized. No Kiel cells. Miscellaneous: Visualized intra-orbital contents are normal. No vicenta bullosa or paradoxical turbinate curvature. No nasal septal deviation. IMPRESSION: 1. Patchy chronic bilateral ethmoid disease. 2. No acute sinusitis. Dictated by: Ed Santos M.D. on 10/08/2021 at 22:48 Approved by: Ed Santos M.D. on 10/08/2021 at 22:51
[2021-10-08] MEDS: methylPREDNISolone 125 MG/2 ML VIAL 60 MG IV (22:40)
[2021-10-08] MEDS: METOPROLOL IR 25 MG TABLET PO (22:40)
[2021-10-08] MEDS: POTASSIUM CHLORIDE 20 MEQ TAB 40 MEQ PO (23:07)
[2021-10-08] MEDS: ATORVASTATIN 20 MG TABLET 80 MG PO (23:07)
[2021-10-08] MEDS: KCL 20 MEQ IN NS 1,000 ML 84 MEQ IV (23:08)
[2021-10-08 23:09] LABS: Creatine Kinase 742 U/L (55-170)
[2021-10-08 23:21] LABS: Troponin I 0.047 ng/mL (0.01-0.034)
[2021-10-08 23:26] LABS: CKMB % Relative Index 6.4 % (1.5-5.0)
[2021-10-09] VITALS (94 sets, daily range): BP systolic 117–208; BP diastolic 65–99; PULSE 51–90; RESP 17–49; TEMP 37.1–37.2; O2SAT 86–96; BMI 25.7
[2021-10-09 05:12] LABS: Blood Urea Nitrogen 22 mg/dL (9-20); Calcium 8.7 mg/dL (8.4-10.2); Carbon Dioxide 33 mmol/L (22-32); Chloride 101 mmol/L (98-107); Estimated Glomerular Filt Rate > 60.0 mL/min (>60); Glucose 141 mg/dL (80-110); HEMOLYSIS < 15 (0-50); Potassium 4.3 mmol/L (3.4-5.1); Sodium 139 mmol/L (137-145)
[2021-10-09 05:14] LABS: Hematocrit 45.9 % (41-53); Hemoglobin 15.4 g/dL (13.5-17.5); Mean Corpuscular HGB Conc 33.6 % (30-36); Mean Corpuscular Hemoglobin 29.6 PG (26-34); Mean Corpuscular Volume 88.3 fL (80-100); Platelet Count 209 X10^3/uL (150-400); Red Cell Distribution Width 13.8 % (11.6-14.8); White Blood Cell Count 11.9 X10^3/uL (4.5-11.0)
[2021-10-09 05:16] LABS: Add Manual Diff / Slide Review YES
[2021-10-09 05:25] LABS: Troponin I 0.042 ng/mL (0.01-0.034)
[2021-10-09] MEDS: methylPREDNISolone 125 MG/2 ML VIAL 60 MG IV ×3 (06:06→22:03)
[2021-10-09] MEDS: KETOROLAC 30 MG/ML VIAL IV ×3 (06:10→22:03)
[2021-10-09] MEDS: ALBUTEROL/IPRATROPIUM 3 ML AMPUL INH ×4 (06:19→22:15)
[2021-10-09 06:47] LABS: Neutrophils Absolute Manual 7973 /uL (3000-5900); RBC Morphology Normal Morphology; Total Cells Counted 100
[2021-10-09] MEDS: ASPIRIN EC 81 MG TABLET PO (08:39)
[2021-10-09] MEDS: lisinopriL 20 MG TABLET 10 MG PO (08:40)
[2021-10-09] MEDS: DOCUSATE 100 MG CAPSULE PO ×2 (08:42→20:26)
[2021-10-09] MEDS: METOPROLOL IR 25 MG TABLET PO ×2 (08:42→20:26)
[2021-10-09] MEDS: EZETIMIBE 10 MG TABLET PO (08:42)
[2021-10-09] MEDS: ENOXAPARIN 40 MG/0.4 ML SYRINGE SUBCUT (08:43)
--- NOTE | 2021-10-09 12:36 | PC.NURSE ---
Lunch offered to patient and company at 1215.
--- NOTE | 2021-10-09 14:37 | P.PN_ITS ---
Subjective Subjective Date Patient Seen: 10/09/21 Interval history: He is seen today to follow-up his pneumonia and COPD. His CT of the chest reveals concerning abnormalities of the lungs, the distal esophagus and the heart. His IV fluid will be stopped. The white blood count is only 11.9. His CT of the sinus showed no sinusitis. Exam Vital Signs (past 8 hours): - 10/09/21 06:40 10/09/21 06:50 10/09/21 07:00 Pulse Rate 74 77 69 Respiratory Rate Blood Pressure Pulse Oximetry 92 91 89 L 10/09/21 07:10 10/09/21 07:20 10/09/21 07:30 Pulse Rate 67 64 64 Respiratory Rate Blood Pressure Pulse Oximetry 92 90 L 91 10/09/21 07:40 10/09/21 07:50 10/09/21 08:00 Pulse Rate 64 67 59 L Respiratory Rate Blood Pressure Pulse Oximetry 92 91 90 L 10/09/21 08:10 10/09/21 08:20 10/09/21 08:30 Pulse Rate 64 66 62 Respiratory Rate Blood Pressure Pulse Oximetry 90 L 90 L 90 L 10/09/21 08:40 10/09/21 08:42 10/09/21 08:50 Pulse Rate 59 L 57 L 55 L Respiratory Rate Blood Pressure 155/77 H 155/77 H Pulse Oximetry 91 91 92 10/09/21 09:00 10/09/21 09:10 10/09/21 09:20 Pulse Rate 58 L 57 L 55 L Respiratory Rate Blood Pressure 158/71 H Pulse Oximetry 91 91 93 10/09/21 09:30 10/09/21 09:40 10/09/21 09:50 Pulse Rate 52 L 59 L 57 L Respiratory Rate Blood Pressure 150/69 H Pulse Oximetry 92 96 96 10/09/21 10:00 10/09/21 10:10 10/09/21 10:20 Pulse Rate 60 55 L 56 L Respiratory Rate 30 H Blood Pressure 175/84 H Pulse Oximetry 94 93 93 10/09/21 10:30 10/09/21 10:40 10/09/21 10:50 Pulse Rate 68 56 L 58 L Respiratory Rate Blood Pressure 182/84 H Pulse Oximetry 92 93 93 10/09/21 11:00 10/09/21 11:01 10/09/21 11:10 Pulse Rate 55 L 68 70 Respiratory Rate Blood Pressure 159/80 H Pulse Oximetry 94 94 92 10/09/21 11:20 10/09/21 11:30 10/09/21 11:40 Pulse Rate 73 76 67 Respiratory Rate Blood Pressure 208/99 H Pulse Oximetry 93 94 93 10/09/21 11:50 10/09/21 12:00 10/09/21 12:01 Pulse Rate 82 62 64 Respiratory Rate Blood Pressure 190/74 H Pulse Oximetry 95 93 93 10/09/21 12:10 10/09/21 12:20 10/09/21 12:30 Pulse Rate 68 67 63 Respiratory Rate Blood Pressure Pulse Oximetry 92 93 93 10/09/21 12:31 10/09/21 12:40 10/09/21 12:50 Pulse Rate 62 68 70 Respiratory Rate Blood Pressure 179/81 H Pulse Oximetry 93 92 93 10/09/21 13:00 10/09/21 13:10 10/09/21 13:15 Pulse Rate 65 71 72 Respiratory Rate 27 H 20 Blood Pressure 182/81 H Pulse Oximetry 95 93 93 10/09/21 13:20 10/09/21 13:30 10/09/21 13:40 Pulse Rate 71 73 79 Respiratory Rate 27 H Blood Pressure 163/78 H Pulse Oximetry 92 90 L 89 L 10/09/21 13:50 10/09/21 14:00 Pulse Rate 74 70 Respiratory Rate Blood Pressure 165/77 H Pulse Oximetry 93 91 Oxygen Delivery Method High Flow Nasal Cannula Oxygen Flow Rate 4 Narrative Exam Narrative: He is alert and oriented x3. He appears to be in moderate distress with the effort of breathing. Heart is regular rate and rhythm without murmur He has crackles at the left base There is no ankle edema Objective Labs Result Diagrams: 10/09/21 04:35 10/09/21 04:35 Labs: Laboratory Results - last 24 hr 10/08/21 10/08/21 10/08/21 09:35 22:50 22:50 WBC RBC Hgb Hct MCV MCH MCHC RDW Plt Count Neut % (Auto) Lymph % (Auto) [place] % (Auto) Eos % (Auto) Baso % (Auto) Lymph # (Auto) [place] # (Auto) Baso # (Auto) Total Counted Seg Neutrophils % Band Neutrophils % Lymphocytes % (Manual) Monocytes % (Manual) Metamyelocytes % Myelocytes % Neutrophils # (Manual) RBC Morphology Sodium Potassium Chloride Carbon Dioxide BUN Creatinine Estimated GFR BUN/Creatinine Ratio Glucose Calcium Total Creatine Kinase 742 H CK-MB (CK-2) 47.50 H CK-MB (CK-2) Rel Index 6.4 H* Troponin I 0.047 H Cancelled NT-Pro-B Natriuret Pep 573 H 10/09/21 10/09/21 10/09/21 04:35 04:35 04:35 WBC 11.9 H RBC 5.20 Hgb 15.4 Hct 45.9 MCV 88.3 MCH 29.6 MCHC 33.6 RDW 13.8 Plt Count 209 Neut % (Auto) Not Reportable Lymph % (Auto) Not Reportable [place] % (Auto) Not Reportable Eos % (Auto) Not Reportable Baso % (Auto) Not Reportable Lymph # (Auto) Not Reportable [place] # (Auto) Not Reportable Baso # (Auto) Not Reportable Total Counted 100 Seg Neutrophils % 26.0 L Band Neutrophils % 41.0 H Lymphocytes % (Manual) 14.0 L Monocytes % (Manual) 16.0 H Metamyelocytes % 2.0 H Myelocytes % 1.0 H Neutrophils # (Manual) 7973 H RBC Morphology Normal morphology Sodium 139 Potassium 4.3 Chloride 101 Carbon Dioxide 33 H BUN 22 H Creatinine 0.71 Estimated GFR > 60.0 BUN/Creatinine Ratio 31.0 H Glucose 141 H Calcium 8.7 Total Creatine Kinase CK-MB (CK-2) CK-MB (CK-2) Rel Index Troponin I 0.042 H NT-Pro-B Natriuret Pep PFSH Medical History (Updated 10/08/21 @ 21:56 by Hiwot Mckeon MD) Esophageal cancer Hyperlipidemia Hypertension Myocardial infarction Prostate cancer Surgical History (Updated 10/08/21 @ 21:56 by Hiwot Mckeon MD) S/P robot-assisted surgical procedure Family History (Updated 10/08/21 @ 21:56 by Hiwot Mckeon MD) Brother Cancer Social History household members: spouse Smoking Status: Former smoker Assessment & Plan Assessment & Plan narrative: 66 y/o male with a history of CAD, remote [place], CAD stents, hypertension, hyperlipidemia, history of esophageal cancer, history of prostate cancer, and probable COPD admitted for * Acute Respiratory Failure * This is likely multifactorial, patient with probable initial viral infection from * CT Scan suggests pneumonia, despite normal WBC and no fever * CT sinus negative for sinusitis * Suspect underlying COPD as well * Continue Ceftriaxone/Azithyromycin for Community Acquired Pneumonia * Continue IV solumedtrol for probable underlying COPD, continue albuterol /atrovent nebs, oxygen as needed for hypoxia * Would recommend outpatient pulmonary function studies once baseline improved * Sars Covid-19 negative, patient is vaccinated and has had his flu shot * Respiratory panel negative * 2. Multiple bilateral pulmonary nodular densities as described above.? Different ial considerations include bronchopneumonia/aspiration, mycobacterial infection, bronchiolitis, connective tissue disorders, or granulomatous processes such as sarcoidosis. 3. Mediastinal and hilar adenopathy, likely reactive.? Follow-up examination is recommended to exclude underlying malignancy. 4. Coronary artery disease. 5. Thickening of the distal esophagus.? Initial further assessment with endoscopy is recommended to evaluate for neoplasm. 6. Apically thinning versus aneurysm involving the left ventricle.? Initial further assessment with echocardiography is recommended.? * Will need pulmonology outpatient evaluation * Check SIXTO level * * Hypertension * Continue lisinopril and metoprolol * * Hypokalemia * replace potassium * f/u level 4.3 * * CAD * History of [place]/ S/p 7 Cardiac Stents * initial troponin 0.058 * Will trend troponin's, suspect -- * Myocardial Injury no active ischemia * continue statin and aspirin * * dvt prophylaxis * * Hyperlipidemia * Continue Statin and ezetimibe * * History of Esophageal and Prostate Cancer * CT of Chest revealed esophageal thickening * Needs outpatient follow up for possible repeat EGD * * Patient is a full code Time Spent With Patient Critical Care time: I spent a total of [] minutes of critical care time on this patient's care today; this time is exclusive of procedural time.
[2021-10-09] MEDS: cefTRIAXone 1,000 MG in SODIUM CHLORIDE 0.9% 100 ML 200 ML IV (16:47)
[2021-10-09] MEDS: AZITHROMYCIN 250 MG TABLET PO (16:47)
[2021-10-09] MEDS: SENNOSIDES 8.6 MG TABLET 17.2 MG PO (20:26)
[2021-10-09] MEDS: ATORVASTATIN 20 MG TABLET 80 MG PO (20:27)
[2021-10-09] MEDS: BENZONATATE 100 MG CAPSULE PO (22:03)
[2021-10-10 00:30] VITALS: BP 158/73; PULSE 63; RESP 22; TEMP 37; O2SAT 93
[2021-10-10] MEDS: BENZONATATE 100 MG CAPSULE PO (04:00)
[2021-10-10] MEDS: SODIUM CHLORIDE 0.9% 1,000 ML 1000 ML IV (04:06)
[2021-10-10] MEDS: methylPREDNISolone 125 MG/2 ML VIAL 60 MG IV (05:18)
--- NOTE | 2021-10-10 05:50 | PC.NURSE ---
Patient bradycardic, running in the 40's, received order from AUDREY Galdamez for 1 L NS bolus, then changed to 500ml.
[2021-10-10 06:50] VITALS: BP 167/81; PULSE 62; RESP 22; TEMP 37.1; O2SAT 95
[2021-10-10] MEDS: ALBUTEROL/IPRATROPIUM 3 ML AMPUL INH ×2 (07:21→19:12)
[2021-10-10 07:23] VITALS: PULSE 78; RESP 16; O2SAT 95
[2021-10-10] MEDS: ASPIRIN EC 81 MG TABLET PO (09:39)
[2021-10-10] MEDS: DOCUSATE 100 MG CAPSULE PO ×2 (09:40→21:46)
[2021-10-10] MEDS: lisinopriL 20 MG TABLET 10 MG PO (09:40)
[2021-10-10] MEDS: EZETIMIBE 10 MG TABLET PO (09:40)
[2021-10-10] MEDS: METOPROLOL IR 25 MG TABLET PO ×2 (09:40→21:46)
[2021-10-10] MEDS: ENOXAPARIN 40 MG/0.4 ML SYRINGE SUBCUT (09:41)
[2021-10-10] MEDS: MORPHINE 2 MG/ML INJ IV ×2 (09:44→21:46)
--- NOTE | 2021-10-10 11:21 | CM.DANOTE ---
DCP: Case received, EMR reviewed and met with patient. Introduced self and role. Was able to obtain information regarding patient's baseline activity level prior to hospitalization. DCP assessment completed with information currently available. Patient is a 66 year old male who admitted on 10-08, Monday, to the care of the hospitalist team. PCP: Dr. Luciano. Payer: confirmed: [facility] [employer]. Patient came to the hospital via private vehicle secondary to having increased dyspnea. Patient is negative for COVID, but holds diagnosis of acute resp failure secondary to COPD/Pneumonia. He is currently on oxygen. Patient has history of CAD and prostate cancer. Met with patient in his room. He was attempting to get sleep, had not slept very well here at the hospital. He was mobile in his room, oxygen in place. He is alert and oriented. Patient resides [facility] with his spouse, Aurelia. confirmed that his provider is Dr. Luciano, and he is currently not on home oxygen. Patient is independent at his baseline. P: DCP to continue to follow. Patient should be able to go home when he is deemed medically stable. Viri Hernandez RN/Information Technology Auditor Discharge Planning/Care Management CM Discharge Assessment Start: 10/10/21 11:18 Freq: Status: Active Protocol: Document 10/10/21 11:18 (Rec: 10/10/21 11:21 [id number]) Discharge Planning Assessment Assigned [employer] Viri Hernandez RN/Information Technology Auditor Advance Directives? No History Provided By Patient,Medical Record Prior Living Arrangements House Household Members spouse Type of transporation used prior to Drives own vehicle admit Independent with ADL's Yes Is patient alert and oriented? Yes Caregiver for Another No Barriers to Discharge No Discharge Plan Home Transportation Arrangement Spouse Whiteboard Updated in Patient Room with Yes name and ext. # of [employer] Review Status In Process Next Review Type Continued Stay Review
[2021-10-10] MEDS: FAMOTIDINE 20 MG TABLET PO ×2 (12:57→21:45)
--- NOTE | 2021-10-10 14:37 | RT ---
Patient complaining of not getting any sleep per RN Magaly and asking to sleep today. Patient's breath sounds earlier were fairly clear, no noted signs of respiratory distress, RR 14, sat 96% on 4 liters. Patient is actively coughing up sputum which he is saving in a cup by the bed. Color is white to yellow. Patient is using Acapella. Breathing treatments marked as not done per patient request but patient and RN know that patient can call for one and get one if wanted. Will continue to check back at scheduled treatment times.
[2021-10-10 15:00] VITALS: BP 165/70; PULSE 62; RESP 15; TEMP 36.6; O2SAT 95
--- NOTE | 2021-10-10 16:17 | PM.PN.1 ---
Subjective Subjective Date Patient Seen: 10/10/21 Exam Vital Signs (past 8 hours): - 10/10/21 15:00 Temperature 97.9 F Pulse Rate 62 Respiratory Rate 15 Blood Pressure 165/70 H Pulse Oximetry 95 Oxygen Delivery Method Nasal Cannula Oxygen Flow Rate 4 Narrative Exam Narrative: PHYSICAL EXAM GENERAL: APPEAR OLDER THAN STATED AGE. OVERWEIGHT HEAD: ATRAUMATIC NORMOCEPHALIC NECK: SUPPLE. NO THYROMEGALY CHEST: REGULAR RATE. NO RUB. NORMAL S1-S2 PULM: DECREASED BS AT THE BASES. NO WHEEZING. NO RALES. NO CRACKLES EXTREMITIES: TRACE EDEMA. PULSES ARE PRESENT DISTALLY NEURO: CRANIAL NERVES 2-12 GROSSLY INTACT. NONFOCAL EXAM MSK: NO DEFORMITY. NO TRAUMAS SKIN: FAIR SKIN TURGOR FOR AGE. NO GROSS LESION PSYCH : APPROPRIATE MOOD AND AFFECT. ALERT, AWAKE, ORIENTED X3 Objective Labs Result Diagrams: 10/09/21 04:35 10/09/21 04:35 [facility] Medical History (Updated 10/08/21 @ 21:56 by Hiwot Mckeon MD) Esophageal cancer Hyperlipidemia Hypertension Myocardial infarction Prostate cancer Surgical History (Updated 10/08/21 @ 21:56 by Hiwot Mckeon MD) S/P robot-assisted surgical procedure Family History (Updated 10/08/21 @ 21:56 by Hiwot Mckeon MD) Brother Cancer Social History household members: spouse Smoking Status: Former smoker Assessment & Plan Assessment & Plan narrative: PROBLEM LIST ACUTE COPD EXACERBATION ACUTE ON CHRONIC RESPIRATORY FAILURE REACTIVE LEUKOCYTOSIS PLAN CONTINUE CURRENT MANAGEMENT FOR NOW NURSING TO ENCOURAGE PATIENT TO USE INCENTIVE SPIROMETER DEVICE WHILE AWAKE CONTINUE CURRENT ABX INCLUDING AZITHROMYCIN WILL CONSIDER ADDING DOXYCYCLINE IF INDICATED MOBILIZE PATIENT HAS TOLERATED OXYGEN SUPPLEMENT TO MAINTAIN PROPER OXYGEN SATURATION ABOVE 90% AT ALL TIMES REPEAT CHEST X-RAY AND ABGS HERE TO FOLLOW IF PATIENT CONTINUE TO TREND PREVENT, WILL LIKELY DISCHARGE THE NEXT 24-48 HOURS ADDITIONAL MANAGEMENT PER CLINICAL COURSE Time Spent With Patient Critical Care time: I spent a total of [] minutes of critical care time on this patient's care today; this time is exclusive of procedural time.
[2021-10-10] MEDS: cefTRIAXone 1,000 MG in SODIUM CHLORIDE 0.9% 100 ML 200 ML IV (16:33)
[2021-10-10] MEDS: AZITHROMYCIN 250 MG TABLET PO (16:34)
[2021-10-10] MEDS: SUCRALFATE 1 GM TABLET PO ×2 (16:35→21:46)
[2021-10-10] MEDS: methylPREDNISolone 125 MG/2 ML VIAL 40 MG IV (16:38)
[2021-10-10] MEDS: SODIUM CHLORIDE 0.9% FLUSH 10 ML IV ×2 (16:39→22:34)
[2021-10-10 19:17] VITALS: PULSE 74; RESP 16; O2SAT 96
[2021-10-10 19:54] VITALS: BP 167/60; PULSE 63; RESP 16; TEMP 37; O2SAT 96
[2021-10-10] MEDS: TRAZODONE 100 MG TABLET PO (21:45)
[2021-10-10] MEDS: SENNOSIDES 8.6 MG TABLET 17.2 MG PO (21:45)
[2021-10-10] MEDS: MELATONIN 3 MG TABLET 6 MG PO (21:45)
[2021-10-10] MEDS: ATORVASTATIN 20 MG TABLET 80 MG PO (21:45)
[2021-10-11] VITALS (12 sets, daily range): BP systolic 131–158; BP diastolic 62–96; PULSE 50–68; RESP 15–20; TEMP 36.6–37.4; O2SAT 88–96
[2021-10-11] MEDS: methylPREDNISolone 125 MG/2 ML VIAL 40 MG IV ×2 (05:17→17:14)
[2021-10-11] MEDS: FAMOTIDINE 20 MG TABLET PO ×2 (06:25→20:36)
[2021-10-11 06:57] LABS: Hematocrit 46.5 % (41-53); Hemoglobin 15.4 g/dL (13.5-17.5); Mean Corpuscular HGB Conc 33.1 % (30-36); Mean Corpuscular Hemoglobin 29.4 PG (26-34); Mean Corpuscular Volume 88.8 fL (80-100); Platelet Count 230 X10^3/uL (150-400); Red Blood Cell Count 5.23 X10^6/uL (4.5-5.9); Red Cell Distribution Width 14.2 % (11.6-14.8); White Blood Cell Count 21.6 X10^3/uL (4.5-11.0)
[2021-10-11 06:59] LABS: Add Manual Diff / Slide Review YES
[2021-10-11 07:07] LABS: Alanine Aminotransferase 214 IU/L (<50); Albumin 3.3 g/dL (3.5-5.0); Albumin Globulin Ratio 1.2 (1.0-2.8); Alkaline Phosphatase 75 U/L (38-126); Aspartate Aminotransferase 66 IU/L (17-59); BUN Creatinine Ratio 27.8 (6-22); Bilirubin Total 0.4 mg/dL (0.2-1.3); Blood Urea Nitrogen 20 mg/dL (9-20); Calcium 8.7 mg/dL (8.4-10.2); Carbon Dioxide 36 mmol/L (22-32); Chloride 102 mmol/L (98-107); Estimated Glomerular Filt Rate > 60.0 mL/min (>60); Globulin 2.8 g/dL (1.7-4.1); Glucose 109 mg/dL (80-110); HEMOLYSIS < 15 (0-50); Potassium 4.4 mmol/L (3.4-5.1); Sodium 140 mmol/L (137-145); Total Protein 6.1 g/dL (6.3-8.2)
[2021-10-11 07:44] LABS: Neutrophils Absolute Manual 16632 /uL (3000-5900); Total Cells Counted 100
[2021-10-11 07:45] LABS: RBC Morphology Normal Morphology
[2021-10-11] MEDS: ALBUTEROL/IPRATROPIUM 3 ML AMPUL INH ×5 (08:03→23:42)
[2021-10-11] MEDS: METOPROLOL IR 25 MG TABLET PO ×2 (08:51→20:36)
[2021-10-11] MEDS: lisinopriL 20 MG TABLET 10 MG PO (08:51)
[2021-10-11] MEDS: SUCRALFATE 1 GM TABLET PO ×4 (08:51→20:36)
[2021-10-11] MEDS: ENOXAPARIN 40 MG/0.4 ML SYRINGE SUBCUT (08:51)
[2021-10-11] MEDS: DOCUSATE 100 MG CAPSULE PO (08:51)
[2021-10-11] MEDS: SODIUM CHLORIDE 0.9% FLUSH 10 ML IV ×2 (08:52→20:54)
[2021-10-11] MEDS: ASPIRIN EC 81 MG TABLET 162 MG PO (08:57)
[2021-10-11] MEDS: EZETIMIBE 10 MG TABLET PO (08:58)
[2021-10-11] MEDS: DOXYCYCLINE HYCLATE 100 MG TABLET PO ×2 (09:16→20:36)
[2021-10-11] MEDS: LACTOBACILLUS ACIDOPHILUS TABLET 1 EACH PO ×2 (13:04→17:13)
[2021-10-11] MEDS: cefTRIAXone 1,000 MG in SODIUM CHLORIDE 0.9% 100 ML 200 ML IV (17:13)
--- NOTE | 2021-10-11 17:58 | P.PN_ITS ---
Subjective Subjective Date Patient Seen: 10/11/21 Interval history: PATIENT SEEN IN HIS ROOM WHILE LAYING DOWN IN THE BED TODAY DENIES ANY INCREASING SHORTNESS OF BREATH. NO CHEST PAIN. NO CHEST PALPITATIONS. HAD A GOOD OF SLEEP. DENIES ANY CONFUSION. NO SIGNIFICANT ISSUES WITH THE NURSING OVERNIGHT Exam Vital Signs (past 8 hours): - 10/11/21 12:16 10/11/21 13:00 10/11/21 16:03 Temperature 97.9 F Pulse Rate 50 L 67 58 L Respiratory Rate 16 19 16 Blood Pressure 131/63 Pulse Oximetry 93 92 94 Oxygen Delivery Method Nasal Cannula Oxygen Flow Rate 1 Narrative Exam Narrative: ? PHYSICAL EXAM ?GENERAL:? APPEAR OLDER THAN STATED AGE.? OVERWEIGHT ?HEAD:? ATRAUMATIC NORMOCEPHALIC ?NECK:? SUPPLE.? NO THYROMEGALY ?CHEST:? REGULAR RATE.? NO RUB.? NORMAL S1-S2 ?PULM:? DECREASED BS AT THE BASES.? NO WHEEZING.? NO RALES.? NO CRACKLES ?EXTREMITIES:? TRACE EDEMA.? PULSES ARE PRESENT DISTALLY ?NEURO:? CRANIAL NERVES 2-12 GROSSLY INTACT.? NONFOCAL EXAM MSK:? NO DEFORMITY.? NO TRAUMAS ?SKIN: ? FAIR SKIN TURGOR FOR AGE.? NO GROSS LESION ?PSYCH :? APPROPRIATE MOOD AND AFFECT.? ALERT, AWAKE, ORIENTED X3 Objective Labs Result Diagrams: 10/11/21 06:35 10/11/21 06:35 Labs: Laboratory Results - last 24 hr 10/11/21 10/11/21 06:35 06:35 WBC 21.6 H RBC 5.23 Hgb 15.4 Hct 46.5 MCV 88.8 MCH 29.4 MCHC 33.1 RDW 14.2 Plt Count 230 Neut % (Auto) Not Reportable Lymph % (Auto) Not Reportable Travis % (Auto) Not Reportable Eos % (Auto) Not Reportable Baso % (Auto) Not Reportable Lymph # (Auto) Not Reportable Travis # (Auto) Not Reportable Baso # (Auto) Not Reportable Total Counted 100 Seg Neutrophils % 67.0 Band Neutrophils % 10.0 H Lymphocytes % (Manual) 11.0 L Atypical Lymphs % 1.0 H Monocytes % (Manual) 7.0 Metamyelocytes % 2.0 H Myelocytes % 2.0 H Neutrophils # (Manual) 69429 H RBC Morphology Normal morphology Sodium 140 Potassium 4.4 Chloride 102 Carbon Dioxide 36 H BUN 20 Creatinine 0.72 Estimated GFR > 60.0 BUN/Creatinine Ratio 27.8 H Glucose 109 Calcium 8.7 Total Bilirubin 0.4 AST 66 H ALT 214 H Alkaline Phosphatase 75 Total Protein 6.1 L Albumin 3.3 L Globulin 2.8 Albumin/Globulin Ratio 1.2 PFSH Medical History (Updated 10/08/21 @ 21:56 by Hiwot Mckeon MD) Esophageal cancer Hyperlipidemia Hypertension Myocardial infarction Prostate cancer Surgical History (Updated 10/08/21 @ 21:56 by Hiwot Mckeon MD) S/P robot-assisted surgical procedure Family History (Updated 10/08/21 @ 21:56 by Hiwot Mckeon MD) Brother Cancer Social History household members: spouse Smoking Status: Former smoker Assessment & Plan Assessment & Plan narrative: ? PROBLEM LIST ACUTE COPD EXACERBATION. ON ANTIBIOTICS AND BREATHING TREATMENTS POSSIBLE BILATERAL PNEUMONIA. LIKELY COMM ACQ; PRESENT ON ARRIVAL. ON ANTIBIOTICS ACUTE ON CHRONIC RESPIRATORY FAILURE. ?REACTIVE LEUKOCYTOSIS . ON ANTIBIOTICS BILATERAL PULMONARY NODULES. TO BE ASSESSED BY RENTAL SALES ASSOCIATE OUTPATIENT POSSIBLE CAD. CARDIOLOGY FOLLOW-UP OUTPATIENT POSSIBLE DISTAL ESOPHAGYL THICKENING. GASTROENTEROLOGY TO FOLLOW OUTPATIENT POSSIBLE LEFT VENTRICLE ANEURYSM. WILL GET ECHOCARDIOGRAM PLAN WILL GET AN ECHOCARDIOGRAM DUE TO REPORTED ABNORMALITY ON CT PATIENT WILL NEED TO BE REFERRED TO CARDIOLOGY WELL GASTROENTEROLOGY OUTPATIENT ONCE DISCHARGED IN REGARD TO THE GI FINDINGS ON CT SCAN WELL REPEAT CHEST FILM INDICATED CLINICALLY CONTINUE TO FOLLOW DAILY LABS WELL PATIENT IS ON ANTIBIOTICS BEING TREATED FOR PNEUMONIA. WELL COPD EXACERBATION AGGRESSIVE FOR A TOILETING INDICATED DAILY LABS TO FOLLOW DE ESCALATE ANTIBIOTICS TX INDICATED CLINICALLY ADDITIONAL MANAGEMENT INDICATED CLINICALLY Time Spent With Patient Critical Care time: I spent a total of [] minutes of critical care time on this patient's care today; this time is exclusive of procedural time.
--- NOTE | 2021-10-11 18:10 | DI.ECHO.S_ITS ---
[facility]---------+ [facility] +---------+ : : [address] : : : : [id number] : : : : Phone: [phone] Echocardiogram Report + :Name: MAY VIZCAINO Study Date: 10/12/2021 Height: 69 in : :[facility] ReadingLocation: Weight: 174 lb : : Gender: Male BSA: 1.9 m2 : :: 1955 Age: 66 yrs BP: 153/66 mmHg: :Reason For Study: POSSIBLE VENTRICLE ANEURYSM : :Ordering Physician: CALVIN, : :JOSE ROBERTO Performed By: Theresa Melendez : :Referring: JOSE ROBERTO SIMPSON : + Interpretation Summary The ejection fraction is estimated to be 60-65%. The LVOT gradient does increase with Valsalva. There is increased echogenicity of the inferior and inferoseptal barrios. There is possible thinning and hypokinesis of the distal inferior and inferoseptal barrios down into their corresponding apical segments. No obvious LV apical thrombus. Grade II diastolic dysfunction. The right ventricle is normal in size and function. The left atrium is mildly dilated. There is mild mitral regurgitation. There is mild aortic stenosis. Pulmonary artery pressures cannot be estimated because of the lack of a measurable TR jet velocity. Procedure: A two-dimensional transthoracic echocardiogram with color flow and Doppler was performed. The study quality was technically adequate. There is no prior echocardiogram noted for this patient. The patient was in sinus bradycardia with heart rates between 58-60 bpm during the exam. Left Ventricle: The left ventricle is normal in size. There is mild concentric left ventricular hypertrophy. Proximal septal thickening is noted. The LVOT gradient does increase with Valsalva. The ejection fraction is estimated to be 60-65%. There is increased echogenicity of the inferior and inferoseptal barrios. There is possible thinning and hypokinesis of the distal inferior and inferoseptal barrios down into their corresponding apical segments. No obvious LV apical thrombus. Grade II diastolic dysfunction. Right Ventricle: The right ventricle is normal in size and function. Atria: The left atrium is mildly dilated. The right atrium is normal in size. There is no Doppler evidence for an interatrial shunt. Mitral Valve: The mitral valve is normal in structure and function. There is mild mitral regurgitation. Aortic Valve: The aortic valve is trileaflet. The aortic valve is moderately calcified. There is mild aortic stenosis. The peak aortic velocity is 2.6 m/sec. The aortic valve mean gradient is 15 mmHg. The calculated aortic valve area is 1.3 cm2. No aortic regurgitation is present. Tricuspid Valve: The tricuspid valve is normal in structure and function. There is a trace or physiologic amount of tricuspid regurgitation. Pulmonary artery pressures cannot be estimated because of the lack of a measurable TR jet velocity. Pulmonic Valve: The pulmonic valve is not well visualized. There is no pulmonic valvular regurgitation. Great Vessels: The aortic root is normal size. The ascending aorta is mild- moderately enlarged. The IVC is of normal diameter and collapses greater than 50% with a sniff. This suggests a low right atrial pressure of 3 mm Hg. Pericardium/ Pleura There is no pericardial effusion. There is no pleural effusion. MMode/2D Measurements & Calculations LVIDd: 4.8 cm LVOT diam: 1.9 cm LVIDs: 3.0 cm Ao root diam: 3.3 cm FS: 37.6 % asc Aorta Diam: 4.0 cm IVSd: 1.0 cm Ao Arch Diam (Prox Trans): 2.7 cm LVPWd: 1.2 cm LV huitron. diameter/BSA (cm/m^2): 2.5 LV sys. diameter/BSA (cm/m^2): 1.5 LA A2 area: 23.0 cm2 RA long axis: 5.0 cm LA A4 area: 16.9 cm2 RA area: 14.9 cm2 LA length (vol): 4.8 cm RA vol: 38.0 ml LA vol: 69.2 ml RA : 19.5 ml/m2 LA vol index: 35.6 ml/m2 IVC diam: 1.4 cm RVD1 (basal): 3.1 cm TAPSE: 2.3 cm Doppler Measurements & Calculations Ao V2 max: 260.0 cm/sec LVOT Max French: 121.3 cm/sec Ao V2 mean: 168.3 cm/sec LV V1 max P.9 mmHg Ao max P.6 mmHg LV V1 VTI: 31.8 cm Ao mean P.7 mmHg JONATHAN(I,D): 1.5 cm2 Ao V2 VTI: 58.8 cm JONATHAN(V,D): 1.3 cm2 sev ratio: 0.54 JONATHAN indexed to BSA (cm^2/m^2): 0.76 MV E max french: 77.9 cm/sec PA V2 max: 143.6 cm/sec MV A max french: 101.8 cm/sec PA V2 mean: 92.8 cm/sec MV E/A: 0.77 PA mean P.0 mmHg Med Peak E' French: 3.9 cm/sec PA pr(Accel): 27.6 mmHg E/E' med: 19.8 Lat Peak E' French: 6.6 cm/sec E/E' lat: 11.9 E/e' average: 15.8 MV dec time: 0.33 sec SV(LVOT): 87.5 ml Reading Physician:03:29 PM
[2021-10-11] MEDS: ATORVASTATIN 20 MG TABLET 80 MG PO (20:36)
[2021-10-11] MEDS: MELATONIN 3 MG TABLET 6 MG PO (20:36)
[2021-10-11] MEDS: TRAZODONE 100 MG TABLET PO (20:37)
[2021-10-11] MEDS: QUETIAPINE 25 MG TABLET 12.5 MG PO (23:47)
[2021-10-12 01:06] VITALS: BP 151/77; PULSE 60; RESP 16; TEMP 37.4; O2SAT 93
[2021-10-12] MEDS: methylPREDNISolone 125 MG/2 ML VIAL 40 MG IV ×2 (04:46→10:15)
[2021-10-12 06:00] VITALS: BP 174/61; PULSE 61; RESP 16; TEMP 37.3; O2SAT 93
--- NOTE | 2021-10-12 08:07 | PC.NURSE ---
Pt rouses easily. Concerned about monitor noise and wanting to sleep a bit more. Settled back to bed. Calf SCD's placed . Pt anticipating going home today after echo. Offers no other c/o presently.
[2021-10-12 08:13] LABS: Angiotensin Converting Enzyme 5 U/L (14-82)
[2021-10-12 08:45] VITALS: BP 157/77; PULSE 55; RESP 20; TEMP 36.7; O2SAT 90
--- NOTE | 2021-10-12 09:36 | P.DS_ITS ---
History of Present Illness History of Present Illness Chief complaint: COUGH, TROUBLE BREATHING Narrative: History of Present Illness History of Present Illness Date Patient Seen:?10/08/21 Narrative: The patient is 66 y/o male with a history of CAD, s/p 7 cardiac stents (4 INGRID), hypertension, hyperlipidemia, esophagaeal cancer, and prostate cancer, who was well until 9 days prior to admission. The patient reports his returned from [place] with a viral infection. She was evaluated/tested and found to be Covid negative. They are both vaccinated against Covid-19.? He developed productive cough, shortness of breath, and wheezing. He was seen by his PCP two days ago and given albuterol, prednisone, and benzoate for cough. Despite that he continues to be very symptomatic. Patient has bilateral conjunctival drainage , productive cough, wheezing, shortness of breath, poor appetite, headache and sinus fullness.? He was very short of breath in the ED, hypoxic with a room air saturation of 85% and speaking in 3 word sentences.? He smoked a pack of cigarettes daily from 1970 to 2008. He has not smoked cigarettes since 2008. He was smoking marijuana daily until recently. He has a remote history of asthma as a child. He also has a remote history of several severe respiratory infections associated with sinus disease many years ago. He has not had pulmonary function testing. He has had no anginal chest pain. He did have some chest pain reproducible with palpation which is unlike his prior cardiac chest pain. The patient was evaluated in the ED from to be hypoxic and placed on 3 liters of oxygen. He was given albuterol inhaler and steroids. His Peak flow in the ED was 200. He had a chest xray in the ED which was unremarkable. CT Angio was negative for PE, but revealed multiple bilateral pulmonary nodular densities, mediastinal and hilar adenopathy, thickening of the esophagus, and Coronary artery disease.? The patient was started on antibiotics in the ED for presumed community acquired pneumonia and admitted to the hospital for further evaluation. Discharge Providers Provider Date of admission: 10/08/21 14:25 Discharge Date: 10/12/21 Primary care physician: Chase Luciano MD Consults: 10/08/21 09:28 Consult to Respiratory Therapy Evaluate & Treat Comment: Peak flows with the neb treatment please Physician Instructions: Evaluate and treat Discharge provider: Blanca Nye, Summary Hospital Course Discharge Diagnosis: ACUTE COPD EXACERBATION.? DISCHARGE ON ANTIBIOTICS AND BREATHING TREATMENTS ?POSSIBLE BILATERAL PNEUMONIA.? LIKELY COMM ACQ; PRESENT ON ARRIVAL.? DISCHARGE ON ANTIBIOTICS ? ACUTE ON CHRONIC RESPIRATORY FAILURE. SIGNIFICANTLY IMPROVED ?REACTIVE LEUKOCYTOSIS .? DISCHARGE ON ANTIBIOTICS ?BILATERAL PULMONARY NODULES.? TO BE ASSESSED BY BENCH REPAIR TECHNICIAN OUTPATIENT INDICATED ?POSSIBLE CAD.? CARDIOLOGY FOLLOW-UP OUTPATIENT INDICATED. HISTORY OF STENT PLACEMENT IN THE RECENT PAST ?POSSIBLE DISTAL? ESOPHAGEAL THICKENING. GASTROENTEROLOGY TO FOLLOW OUTPATIENT. HISTORY OF ESOPHAGEAL CANCER ?POSSIBLE LEFT VENTRICLE ANEURYSM.? NOT REPORTED ON ECHOCARDIOGRAM Hospital Course: 65-YEAR-OLD MALE ADMITTED TO THE HOSPITAL TREATED FOR AN ACUTE COPD EXACERBATION WELL BILATERAL PNEUMONIA. HAS A HISTORY OF UPPER GI CONSULT NORMAL. NO ACUTE INPATIENT TREATMENT INDICATED NEED HOSPITAL STAY IN ANY CASE, PATIENT RESPONDED VERY WELL TO OUR MANAGEMENT. THERE WERE SOME ABNORMAL FINDING ON CT SCAN THAT ADMISSION HOWEVER PATIENT HAS EXTENSIVE PAST MEDICAL HISTORY AND THE LESION NOTED ON CT SCAN WERE KNOWN PATIENT WILL BE DISCHARGED ON ANTIBIOTICS WELL ALBUTEROL FOR BREATHING TREATMENT. ANTIBIOTICS TREATMENT WILL BE FOR AN ADDITIONAL 7 DAYS POST DISCHARGE HE HAD NO NEED FOR HOME OXYGEN AT THIS TIME. WE WILL DEFER ADDITIONAL MANAGEMENT TO HIS OUTPATIENT PROVIDERS Status at Discharge Cognitive/behavioral status at discharge: oriented, at baseline, oriented and calm Functional status at discharge: independent ambulation Overall status at discharge: patient is progressing back to baseline Time Spent with Patient Time spent: Greater than 30 minutes Exam Vital Signs (past 8 hours): - 10/12/21 06:00 10/12/21 08:45 Temperature 99.2 F 98.1 F Pulse Rate 61 55 L Respiratory Rate 16 20 Blood Pressure 174/61 H 157/77 H Pulse Oximetry 93 90 L Oxygen Delivery Method Nasal Cannula Oxygen Flow Rate 1 Narrative Exam Narrative: ?GENERAL:? APPEAR OLDER THAN STATED AGE.? OVERWEIGHT ?HEAD:? ATRAUMATIC NORMOCEPHALIC ?NECK:? SUPPLE.? NO THYROMEGALY ?CHEST:? REGULAR RATE.? NO RUB.? NORMAL S1-S2 ?PULM:? DECREASED BS AT THE BASES.? NO WHEEZING.? NO RALES.? NO CRACKLES ?EXTREMITIES:? TRACE EDEMA.? PULSES ARE PRESENT DISTALLY ?NEURO:? CRANIAL NERVES 2-12 GROSSLY INTACT.? NONFOCAL EXAM MSK:? NO DEFORMITY.? NO TRAUMAS ?SKIN: ? FAIR SKIN TURGOR FOR AGE.? NO GROSS LESION ?PSYCH :? APPROPRIATE MOOD AND AFFECT.? ALERT, AWAKE, ORIENTED X3 Objective Labs Result Diagrams: 10/12/21 10:02 10/12/21 10:02 Labs: Laboratory Results - last 24 hr 10/10/21 05:00 Angiotensin Convert Enz 5 L PFSH Medical History (Updated 10/08/21 @ 21:56 by Hiwot Mckeon MD) Esophageal cancer Hyperlipidemia Hypertension Myocardial infarction Prostate cancer Surgical History (Updated 10/08/21 @ 21:56 by Hiwot Mckeon MD) S/P robot-assisted surgical procedure Family History (Updated 10/08/21 @ 21:56 by Hiwot Mckeon MD) Brother Cancer Social History household members: spouse Smoking Status: Former smoker Discharge Plan Discharge Plan Patient Disposition: Home Discharge orders & Medications Prescriptions: New ipratropium-albuterol 0.5 mg-3 mg(2.5 mg base)/3 mL Solution For Nebulization 3 ml INH [id number] Qty: 90 0RF melatonin 3 mg Tablet 6 mg PO BEDTIME Qty: 60 0RF famotidine [Pepcid AC] 20 mg Tablet 20 mg PO BID Qty: 120 0RF doxycycline hyclate 100 mg Tablet 100 mg PO BID Qty: 20 0RF sennosides [senna] 8.6 mg Tablet 17.2 mg PO BEDTIME Qty: 60 0RF sucralfate 1 gram Tablet 1 gm PO ACHS Qty: 240 0RF trazodone 100 mg Tablet 100 mg PO BEDTIME Qty: 60 0RF cefdinir 300 mg capsule 300 mg PO BID Qty: 20 0RF Acidophilus Capsule 100 mmu cells PO TID Qty: 30 0RF prednisone 10 mg tablet 10 mg PO DIRECTED Qty: 30 0RF Rx Instructions: 40MG PO X 3 DAYS 30MG MG PO X 3 DAYS 20MG PO X 3 DAYS 10MG PO X 3 DAYS 5 MG PO X 3 DAYS lorazepam 1 mg Tablet 1 mg PO Q6-12H PRN (Reason: Anxiety) Qty: 20 0RF Continued lisinopril 20 mg tablet 10 mg PO DAILY 0RF rosuvastatin 40 mg tablet 40 mg PO DAILY 0RF benzonatate [Tessalon Perles] 100 mg capsule 100 mg PO BID PRN (Reason: cough) Qty: 20 0RF albuterol sulfate 90 mcg/actuation HFA aerosol inhaler 2 puff inhalation Q6H PRN (Reason: shortness of breath or wheezing) Qty: 6.7 0RF ezetimibe 10 mg Tablet 10 mg PO DAILY 0RF metoprolol tartrate 25 mg Tablet 25 mg PO BID 0RF aspirin [Adult Low Dose Aspirin] 81 mg Tablet,Delayed Release (Dr/Ec) 81 mg PO DAILY 0RF Discontinued prednisone 50 mg tablet 50 mg PO DAILY 4 Days Qty: 4 0RF Medication counseling provided by Pharmacist: No Follow up/Referrals: Chase Luciano MD [Primary Care Provider] - Diet/Activity/Treatments Diet: Low-fat, Low-sodium and Low-cholesterol Skin/Wound/Dressing Care Report to your healthcare provider any signs of infection, such as:: chills, fever, night sweats, increased pain and unusual drainage Visit Report/Discharge Packet Instructions: DI for Heart Failure Discharge Data Primary Care Provider: Chase Luciano
[2021-10-12 10:02] VITALS: O2SAT 95
[2021-10-12] MEDS: EZETIMIBE 10 MG TABLET PO (10:13)
[2021-10-12] MEDS: DOCUSATE 100 MG CAPSULE PO (10:13)
[2021-10-12] MEDS: FAMOTIDINE 20 MG TABLET PO (10:13)
[2021-10-12] MEDS: cefTRIAXone 1,000 MG in SODIUM CHLORIDE 0.9% 100 ML 200 ML IV (10:13)
[2021-10-12] MEDS: METOPROLOL IR 25 MG TABLET PO (10:14)
[2021-10-12 10:16] VITALS: BP 157/77; PULSE 55
[2021-10-12] MEDS: lisinopriL 20 MG TABLET 10 MG PO (10:16)
[2021-10-12] MEDS: ASPIRIN EC 81 MG TABLET 162 MG PO (10:20)
[2021-10-12] MEDS: ENOXAPARIN 40 MG/0.4 ML SYRINGE SUBCUT (10:20)
[2021-10-12 10:24] LABS: Add Manual Diff / Slide Review YES; Hematocrit 46.7 % (41-53); Hemoglobin 15.6 g/dL (13.5-17.5); Mean Corpuscular HGB Conc 33.4 % (30-36); Mean Corpuscular Hemoglobin 29.7 PG (26-34); Mean Corpuscular Volume 89.1 fL (80-100); Platelet Count 198 X10^3/uL (150-400); Red Blood Cell Count 5.24 X10^6/uL (4.5-5.9); Red Cell Distribution Width 13.8 % (11.6-14.8); White Blood Cell Count 18.1 X10^3/uL (4.5-11.0)
[2021-10-12] MEDS: DOXYCYCLINE HYCLATE 100 MG TABLET PO (10:27)
[2021-10-12] MEDS: SODIUM CHLORIDE 0.9% FLUSH 10 ML IV (10:33)
[2021-10-12 10:35] LABS: Alanine Aminotransferase 157 IU/L (<50); Albumin 3.4 g/dL (3.5-5.0); Albumin Globulin Ratio 1.4 (1.0-2.8); Alkaline Phosphatase 70 U/L (38-126); Aspartate Aminotransferase 56 IU/L (17-59); BUN Creatinine Ratio 22.7 (6-22); Bilirubin Total 0.5 mg/dL (0.2-1.3); Blood Urea Nitrogen 17 mg/dL (9-20); Calcium 8.9 mg/dL (8.4-10.2); Carbon Dioxide 32 mmol/L (22-32); Chloride 99 mmol/L (98-107); Estimated Glomerular Filt Rate > 60.0 mL/min (>60); Globulin 2.5 g/dL (1.7-4.1); Glucose 178 mg/dL (80-110); HEMOLYSIS < 15 (0-50); Phosphorous 4.2 mg/dL (2.3-3.7); Potassium 4.4 mmol/L (3.4-5.1); Sodium 136 mmol/L (137-145); Total Protein 5.9 g/dL (6.3-8.2)
[2021-10-12 10:48] LABS: Troponin I 0.018 ng/mL (0.01-0.034)
[2021-10-12 10:51] LABS: Neutrophils Absolute Manual 15566 /uL (3000-5900); Total Cells Counted 100
[2021-10-12] MEDS: SUCRALFATE 1 GM TABLET PO (12:17)
[2021-10-12] MEDS: LACTOBACILLUS ACIDOPHILUS TABLET 1 EACH PO (12:17)
[2021-10-12 13:02] VITALS: BP 156/69; PULSE 60; RESP 20; TEMP 36.6; O2SAT 92
== END 2021-10-12 15:30 | disposition home or self-care (01) | DRG 193 ==
LOC: ED 09:26 → AC 14:26
PROVIDERS: Family Medicine; Hospitalist; Internal Medicine; Admitting Provider Student in an Organized Health Care Education/Training Program; Emergency Provider Emergency Medicine; PCP Family Medicine; Referring Provider Emergency Medicine; Visit Provider Student in an Organized Health Care Education/Training Program
DX: J18.9 Pneumonia, unspecified organism (principal); J96.20 Acute and chronic respiratory failure, unspecified whether with hypoxia or hypercapnia; I21.A1 Myocardial infarction type 2; J44.1 Chronic obstructive pulmonary disease with (acute) exacerbation; E87.6 Hypokalemia; I10 Essential (primary) hypertension; I25.10 Atherosclerotic heart disease of native coronary artery without angina pectoris; E78.5 Hyperlipidemia, unspecified; D72.829 Elevated white blood cell count, unspecified; Z95.5 Presence of coronary angioplasty implant and graft; Z87.891 Personal history of nicotine dependence; Z20.822 Contact with and (suspected) exposure to COVID-19; J40 Bronchitis, not specified as acute or chronic; R05.9 Cough, unspecified; R06.02 Shortness of breath; R09.89 Other specified symptoms and signs involving the circulatory and respiratory systems; R52 Pain, unspecified
CPT/HCPCS: 36415; 36600; 70486; 71045; 71046; 71275; 80048; 80053; 81003; 81015; 82164; 82550; 82553; 82805; 83605; 83735; 83880; 84100; 84484; 85007; 85025; 85379; 87070; 87086; 87205; 87633; 87635; 93005; 93306; 94150; 94640; 94667; 94760; 94762; 96365; 96366; 96367; 96375; 96376; 99285; 99291; A9270; J0696; J1650; J1885; J2270; J2930; J7613; Q9967

== ENCOUNTER → 2024-06-11 06:59 | Outpatient (CLI) | payer OTHER, SELFPAY ==
[2021-10-09 15:08] VITALS: BMI 25.7
--- NOTE | 2024-06-11 07:00 | DI.ECHO.S_ITS ---
[facility] +---------+ [facility] : : [address] : : [place] : : [id number] : : Phone: [phone] Echocardiogram Report + + :Name: MAY VIZCAINO Study Date: 06/11/2024 Height: 70 in : :Hospital ReadingLocation: Weight: 200 lb : : Gender: Male BSA: 2.1 m2 : :: 1955 Age: 68 yrs BP: 170/93 mmHg: :Reason For Study: CAD INVOLVING [place] [facility] : :Ordering Physician: SIMON LUGO Performed By: Theresa Melendez : :Referring: SIMON LUGO : + + Interpretation Summary 1. The left ventricular contractility is normal. Estimated ejection fraction is greater than 55% with no segmental wall motion abnormalities. Moderate asymmetrical left ventricle hypertrophy without LVOT obstruction is noted. Grade 1 diastolic dysfunction present. 2. The right ventricular contractility is normal. 3. All cardiac chambers are of normal size. 4. Trace to mild mitral regurgitation present. 5. Mild aortic valvular stenosis with mean gradient of 12 mmHg and dimensionless index of 0.54. 6. No obvious intracardiac shunts. 7. No obvious intracardiac masses nor thrombi. 8. No hemodynamically significant pericardial effusion. 9. No echocardiographic evidence of elevated right-sided filling pressures. Conclusion: Normal biventricular systolic function with no severe valvular abnormalities. When compared with previous echocardiogram, there appears to be progression of the left ventricular hypertrophy. Procedure: A two-dimensional transthoracic echocardiogram with color flow and Doppler was performed. The study quality was technically adequate. Comparison is made with the echocardiogram of 10/12/2021. The patient was in sinus bradycardia with heart rates between 44-57 bpm during the exam. Left Ventricle: The left ventricle is normal in size. Proximal septal thickening is noted. There is moderate concentric left ventricular hypertrophy. The ejection fraction is estimated to be 60-65%. Right Ventricle: The right ventricle is normal in size and function. Atria: The left atrial size is normal. The right atrium is normal in size. There is no Doppler evidence for an interatrial shunt. Mitral Valve: The mitral valve is normal in structure and function. There is mild mitral regurgitation. Aortic Valve: The aortic valve is trileaflet. The aortic valve is mildly calcified. The peak aortic velocity is 2.3 m/sec. The aortic valve mean gradient is 12 mmHg. The calculated aortic valve area is 1.4 cm2. No aortic regurgitation is present. Tricuspid Valve: The tricuspid valve is normal in structure and function. There is trace tricuspid regurgitation. Pulmonic Valve: The pulmonic valve is not well seen, but is grossly normal. There is no pulmonic valvular regurgitation. Great Vessels: The aortic root is normal size. The dimensions of the ascending aorta are normal. Mild atherosclerotic plaque(s) in the ascending aorta. The IVC is of normal diameter and collapses greater than 50% with a sniff. This suggests a low right atrial pressure of 3 mm Hg. Pericardium/ Pleura There is no pericardial effusion. There is no pleural effusion. MMode/2D Measurements & Calculations LVIDd: 5.3 cm LVOT diam: 2.0 cm LVIDs: 3.7 cm Ao root diam: 3.2 cm FS: 29.2 % asc Aorta Diam: 3.8 cm EPSS: 0.65 cm Ao Arch Diam (Prox Trans): 3.4 cm IVSd: 1.6 cm LVPWd: 0.90 cm LV huitron. diameter/BSA (cm/m^2): 2.5 LV sys. diameter/BSA (cm/m^2): 1.8 LA A2 area: 20.4 cm2 RA long axis: 5.3 cm LA A4 area: 17.0 cm2 RA area: 16.5 cm2 LA length (vol): 4.8 cm RA vol: 43.1 ml LA vol: 61.6 ml RA : 20.7 ml/m2 LA vol index: 29.5 ml/m2 IVC diam: 1.8 cm RVD1 (basal): 3.3 cm RVD2 (mid): 2.9 cm TAPSE: 1.6 cm Doppler Measurements & Calculations Ao V2 max: 231.9 cm/sec LVOT Max French: 107.1 cm/sec Ao V2 mean: 159.0 cm/sec LV V1 max P.6 mmHg Ao max P.3 mmHg LV V1 VTI: 29.2 cm Ao mean P.8 mmHg JONATHAN(I,D): 1.7 cm2 Ao V2 VTI: 53.8 cm JONATHAN(V,D): 1.4 cm2 sev ratio: 0.54 JONATHAN indexed to BSA (cm^2/m^2): 0.81 MV E max french: 100.4 cm/sec PA V2 max: 100.1 cm/sec MV A max french: 57.6 cm/sec PA V2 mean: 76.0 cm/sec MV E/A: 1.7 PA mean P.5 mmHg Med Peak E' French: 4.8 cm/sec PA pr(Accel): 43.0 mmHg E/E' med: 20.7 Lat Peak E' French: 5.0 cm/sec E/E' lat: 20.1 E/e' average: 20.4 MV dec time: 0.30 sec SV(LVOT): 91.2 ml Reading Physician:
--- NOTE | 2024-06-11 08:56 | DI.US.S_ITS ---
PROCEDURE: US CAROTID DOPPLER BI INDICATIONS: CAD INVOLVING INUPIAT CA OF INUPIAT HEART TECHNIQUE: Color and pulse Doppler interrogation was performed of both carotid systems, with image documentation and velocity measurements. COMPARISON: None. FINDINGS: Stenosis calculations are based on SRU ([employer] in Ul[employer]) criteria. Right side: Brachial blood pressure: 127/67 mm Hg. Common carotid artery peak systolic velocity: 82 cm/sec. Internal carotid artery peak systolic velocity: 80 cm cm/sec. Internal carotid artery end diastolic velocity: 25 cm/sec External carotid artery peak systolic velocity: 218 cm/sec all ICA/CCA peak systolic ratio: 0.30 Orozco scale imaging description: Small amount of atherosclerotic plaques within the proximal ICA, bulb and proximal external carotid artery Percent internal carotid artery stenosis: Less than 50%. Vertebral artery: Flow direction is antegrade. Left side: Brachial blood pressure: 122/64 mm Hg. Common carotid artery peak systolic velocity: 76 cm/sec Internal carotid artery peak systolic velocity: 116 cm/sec Internal carotid artery end diastolic velocity: 39 cm/sec External carotid artery peak systolic velocity: 157 cm/sec ICA/CCA peak systolic ratio: 1.5 Orozco scale imaging description: Small amount of arthrosclerotic plaques within the bulb, distal common carotid artery, proximal common carotid artery, and proximal external carotid. Percent internal carotid artery stenosis: Less than 50% Vertebral artery: Flow direction is antegrade. IMPRESSION: 1. No significant arthrosclerotic plaques which result in greater than 50% luminal stenosis bilaterally. 2. There is anterograde flow through the vertebral arteries bilaterally Dictated by: Delfin Herring M.D. on 06/11/2024 at 13:49 Approved by: Delfin Herring M.D. on 06/11/2024 at 14:11
== END ==
LOC: ECHO 07:00
PROVIDERS: PCP Family Medicine; Referring Provider Internal Medicine; Visit Provider Internal Medicine
DX: I34.0 Nonrheumatic mitral (valve) insufficiency (principal); I25.10 Atherosclerotic heart disease of native coronary artery without angina pectoris; R09.89 Other specified symptoms and signs involving the circulatory and respiratory systems; I70.0 Atherosclerosis of aorta
CPT/HCPCS: 93306; 93880